=== PATIENT | female | born 1995 | race Caucasian/White ===

== ENCOUNTER 2024-05-07 08:55 | Outpatient (AMB) | payer BC, SELFPAY ==
[2024-05-07 08:59] VITALS: BP 118/70; PULSE 69; O2SAT 98; BMI 39.4
--- NOTE | 2024-05-07 08:59 | A.OFFPC_ITS ---
Vital Signs 05/07/24 08:59 Height 5 ft 3 in Weight 222 lb 4 oz BMI 39.4 BP 118/70 Blood Pressure Location Lt brachial Position Sitting Pulse 69 Pulse Source Pulse Oximeter Pulse Oximetry (%) 98 Oxygen Delivery Method Room Air Intake Visit Reasons: IRONER Intake Note: Patient is here as a new patient, would like to talk about Semigultide today. Is last menstrual period known: Yes Last menstrual period: 04/30/24 Allergies No Known Allergies Allergy (Verified 05/07/24 09:01) Tobacco use date assessed: 05/07/24 Dental Screening Dental Screen Date: 05/07/24 Did you have a dental visit in the last 12 months?: Yes Did you have a dental problem in the last 6 months where you did not have access to dental care?: No Was dental information given to patient?: Patient has dentist HPI HPI Comments History of Present Illness Details This is a 28-year-old female with no significant past medical history presenting to [facility] care. Her last practice was in [place]. She was seen there 2 years ago. She is saving for a house with her boyfriend. 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 She would like to discuss weight loss medication. She has struggled with her weight for many years. She tried hypnosis, and she currently follows a low carbohydrate, low sugar diet and goes to the gym 4 times per week. She has been actively trying to lose weight for the past year without success. She had an annual gynecologic exam within the past year at [facility]. She will schedule an eye exam. ROS: Constitutional: No unexplained weight loss, fever, chills, fatigue or night sweats. Eyes: No vision changes, blurry vision, double vision, eye pain, eye redness, eye discharge. ENT: No hearing loss, sneezing, congestion, runny nose or sore throat. Respiratory: No shortness of breath, cough or sputum production. Cardiovascular: No chest pain, chest pressure or chest discomfort. No palpitations or pedal edema. Gastrointestinal: No anorexia, nausea, vomiting or diarrhea. No abdominal pain or blood in stool. Genitourinary: No dysuria, hematuria, urinary frequency. Neurologic: No headache, dizziness, syncope, unilateral weakness, ataxia, numbness or tingling in the extremities. Musculoskeletal: No muscle pain, back pain, joint pain or swelling. Hematologic/Lymphatics: No bleeding or bruising. No painful lymph nodes. Skin: No rash or itching. Endocrine: No cold or heat intolerance. No polyuria or polydipsia. Psychiatric: No depression or anxiety. No SI/HI. Physical exam: Constitutional: Alert, in no distress. Head: Normocephalic. Eyes: Pupils are equal, round and reactive to light. Extraocular muscles intact. Ear, Nose and Throat: Canals clear. TMs normal. Normal nasal mucosa. No nasal discharge. No oral lesions. Neck: Supple, Full range of motion. No lymphadenopathy. No palpable thyroid masses. Respiratory: Clear to auscultation. Cardiovascular: S1 S2 regular. No murmurs. Gastrointestinal: Abdomen soft, non-tender, non-distended. Normal bowel sounds. No palpable masses. Neurologic: No focal neurological deficits. Symmetric patellar reflexes. Moves all extremities spontaneously. Sensation intact bilaterally. Skin: No rashes. Musculoskeletal: No gross deformities. Normal range of motion. Extremities: Warm and well perfused. No clubbing, cyanosis or edema. 3+ peripheral pulses bilaterally. Psychiatric: Normal mood and affect [facility] Medical History (Updated 05/07/24 @ 09:51 by NICK Mccain) Obesity, Class II, BMI 35-39.9, isolated (see actual BMI) Surgical History (Updated 05/07/24 @ 09:47 by NICK Mccain) History of wisdom tooth extraction Family History (Updated 05/07/24 @ 09:35 by NICK Mccain) Father Diabetes Mother Mental health disorder Sister Mental health disorder Maternal Grandmother Breast cancer Paternal Grandfather Prostate cancer Social History (Updated 05/07/24 @ 09:10 by Candace Hernandez [facility]) Household Members: Family Both parents involved: Yes Caregiver staying overnight: No Housing: Condominium Are you a primary manager managed care to a significant other at home: No Do you presently have visiting nurse or other home services: No 75 years or older and lives alone: No Alcohol intake: current Alcohol intake frequency: holidays/special occasions only Alcohol type: wine, hard liquor and other Patient Tobacco Use Status: Never used Tobacco e-Cigarette/Vaping Use: Never Used Agree to transfusion: Yes service: No Current occupational status: employed 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 Cognitive needs: No Hearing needs: No Vision needs: Yes (Patient wears glasses) Female Reproductive History Menstrual Date of last menstrual period: 04/30/24 Questionnaire PHQ-9 Over the last 2 weeks, how often have you been bothered by any of the following problems? 1. Little interest or pleasure in doing things: not at all 2. Feeling down, depressed, or hopeless: not at all 3. Trouble falling or staying asleep, or sleeping too much: not at all 4. Feeling tired or having little energy: not at all 5. Poor appetite or overeating: not at all 6. Feeling bad about yourself - or that you are a failure or have let yourself or your family down: not at all 7. Trouble concentrating on things, such as reading the newspaper or watching television: not at all 8. Moving or speaking so slowly that other people could have noticed. Or the opposite - being so fidgety or restless that you have been moving around a lot more than usual: not at all 9. Thoughts that you would be better off or of hurting yourself in some way: not at all Total score: 0 Depression Screening Interpretation: Negative Depression Screening Done: Yes Source: Developed by Drs. Miguel Dolan, Evangelina Olmos, Dionte Morgan and colleagues, with an educational malathi from [employer]. Thrive Questionnaire Date Thrive assessed: 05/07/24 I am a: Patient What is your living situation today?: I have a steady place to live Within the past 12 months, did the food you bought not last and you didn't have the money to get more?: Never true Within the past 12 months, did you worry whether your food would run out before you got money to buy more?: Never true Do you have trouble paying for medicines?: No Do you have trouble getting transportation to medical appointments?: No Do you have trouble paying your heating and electricity bill?: No Do you have trouble taking care of your child, family member or friend?: No Do you have trouble with day-to-day activities such as bathing, preparing meals, shopping, managing finances, etc.?: No Are you currently unemployed and looking for a job?: No Are you interested in more education?: No THRIVE Score: 0 AUDIT C Alcohol Use Questionnaire (AUDIT-C) 1. How often do you have a drink containing alcohol?: 2-4 times a month 2. How many drinks containing alcohol do you have on a typical day when you are drinking?: 5 or 6 3. How often do you have six or more drinks on one occasion?: Less than monthly Total Score: 5 Score Reviewed/Action Taken: Yes CÉSAR-7 AMB Questionnaire CÉSAR-7 Date CÉSAR - 7 assessed: 05/07/24 Feeling nervous, anxious, or on edge: 0 = Not at all Not being able to stop or control worryin = Not at all Worrying too much about different things: 0 = Not at all Trouble relaxin = More than half the days Being so restless that it is hard to sit still: 0 = Not at all Becoming easily annoyed or irritable: 0 = Not at all Feeling afraid as if something awful might happen: 0 = Not at all Total CÉSAR-7 score (0-4 normal; 5-9 mild; 10-14 moderate; 15-21 severe): 2 Source: Developed by Drs. Miguel Dolan, Evangelina Olmos, Dionte Morgan and colleagues, with an educational malathi from [employer]. Physical exam (Primary Care) Vital Signs: Last Vital Signs Pulse 69 05/07/24 08:59 BP 118/70 05/07/24 08:59 Pulse Ox 98 05/07/24 08:59 Oxygen Delivery Method Room Air 05/07/24 08:59 BMI result Body Mass Index 39.4 Tobacco/Smoking Status: Tobacco use Status Tobacco use date assessed 05/07/24 05/07/24 09:10 Patient Tobacco Use Status Never used Tobacco 05/07/24 09:10 e-Cigarette/Vaping Use Never Used 05/07/24 09:10 PHQ-9: PHQ-9 Score PHQ-9: Total score 0 05/07/24 09:16 Depression Screening Interpretation: Negative Thrive Assessment: Date of Thrive Assessment Date Thrive assessed 05/07/24 05/07/24 09:16 Assessment and Plan Assessment & Plan (1) Routine physical examination: Code(s): Z00.00 - Encounter for general adult medical examination without abnormal findings Plan: Patient is seen today for a routine physical. As part of this visit we reviewed the following issues, which are considered and essential part of preventative health in this age group: - Breast Cancer screening - Annual Policy Intern exam - Blood pressure screening annually - Cholesterol screening - Osteoporosis prevention including calcium/vitamin D intake, weight bearing exercise & smoking cessation - Nutritional and exercise counseling - Counseling of injury prevention including fire prevention, smoke alarms and seat belt usage - Screening for depression - Prevention of and/or testing for infectious diseases - done at [facility] per pt - Education about skin cancer - Recommendations about immunizations -she will sign release for transfer records - Recommendation of an eye exam - Screening for substance abuse (2) Obesity, Class II, BMI 35-39.9, isolated (see actual BMI): Code(s): E66.9 - Obesity, unspecified Plan: Check screening labs. Prescribed Zepbound. The patient denies contraindications to GLP-1 receptor agonist. We reviewed the FDA preliminary evaluation that has not found evidence that these medications cause suicidal thoughts or actions, but the investigation is ongoing. If the patient develops these symptoms they will stop taking the medication immediately and contact the office. We reviewed more common side effects such as bloating, constipation, nausea and vomiting. We reviewed the administration and dosing schedule. The patient is instructed to continue lifestyle modifications and efforts at weight loss. We discussed how weight loss can cause physiologic changes in the body and that some patients may experience hair thinning/hair loss. We also discussed that the medications are frequently backordered which may result in a delayed start or disruption when taking the medication. The patient understands it is their responsibility to contact alternative pharmacies if the medication is not available at their usual pharmacy. The patient is also made aware that insurance may deny coverage for the medication despite prior authorization. Plan Follow up 3 weeks after starting Zepbound for med check. Telehealth okay. Orders: Orders Complete Blood Count no Diff Today E66.9 - Obesity, unspecified, Z13.6 - Encounter for screening for cardiovascular disorders Comprehensive Met. Panel Today E66.9 - Obesity, unspecified, Z13.6 - Encounter for screening for cardiovascular disorders Lipid Panel Today E66.9 - Obesity, unspecified, Z13.6 - Encounter for screening for cardiovascular disorders TSH reflex Free T4 Today E66.9 - Obesity, unspecified, Z13.6 - Encounter for screening for cardiovascular disorders Medications: New tirzepatide (weight loss) (Zepbound) 2.5 mg (0.5 mL) subcut QWEEK 4 weeks 2 mL 0RF Coding Level of Care Code New Pt Prev Care 18-39yr(65074 Diagnoses Routine physical examination Z00.00 Obesity, Class II, BMI 35-39.9, isolated (see actual BMI) E66.9
== END 2024-05-07 09:48 | disposition home or self-care (01) ==
PROVIDERS: PCP Physician Assistant Medical; Visit Provider Physician Assistant Medical
DX: Z00.00 Encounter for general adult medical examination without abnormal findings (principal); E66.9 Obesity, unspecified; Z68.39 Body mass index [BMI] 39.0-39.9, adult
CPT/HCPCS: 99385

== ENCOUNTER 2024-06-06 08:28 | Outpatient (REF) | payer BC, SELFPAY ==
[2024-06-06 09:09] LABS: Hematocrit 39.6 % (37.0-47.0); Hemoglobin 12.9 g/dl (12.0-16.0); Mean Corpuscular HGB Conc 32.6 g/dl (31.0-35.0); Mean Corpuscular Hemoglobin 29.3 pg (27.0-33.0); Mean Platelet Volume 9.6 fL (9.4-12.3); Platelet Count 404 X10*3/uL (160-400); Red Cell Distribution Width 12.6 % (11.0-16.0)
[2024-06-06 09:38] LABS: Alanine Aminotransferase 19 U/L (0-31); Albumin Level 4.4 g/dL (3.5-5.0); Alkaline Phosphatase 81 U/L (39-117); Anion Gap 12 (12-20); Aspartate Amino Transferase 15 U/L (5-31); Bilirubin Total 0.3 mg/dL (0.0-1.0); Blood Urea Nitrogen 16 mg/dL (9-16); Calcium 9.2 mg/dL (8.4-10.2); Carbon Dioxide 24 mmol/L (22-29); Chloride 108 mmol/L (96-108); Cholesterol 197 mg/dL (<200); Estimated Glomerular Filt Rate > 60; Glucose Random 99 mg/dL (60-115); HDL Cholesterol 59 mg/dL (>40); LDL Cholesterol Calculated 122 mg/dL (<100); Sodium 140 mmol/L (135-145); Total Protein 7.6 g/dL (6.5-8.0); Triglycerides 82 mg/dL (<150)
[2024-06-06 09:55] LABS: TSH reflex Free T4 1.82 uIU/mL (0.32-4.0)
== END 2024-06-06 08:29 | disposition home or self-care (01) ==
LOC: HO.LAB 08:28
PROVIDERS: PCP Physician Assistant Medical; Visit Provider Physician Assistant Medical
DX: E66.9 Obesity, unspecified (principal); Z13.6 Encounter for screening for cardiovascular disorders
CPT/HCPCS: 36415; 80053; 80061; 84443; 85027

== ENCOUNTER 2024-06-08 09:55 | Outpatient (AMB) | payer BC, SELFPAY ==
--- NOTE | 2024-06-08 09:52 | MHC.PC.OV ---
Intake Visit Reasons: phone visit med check zepbound Intake Note: Follow up medication Allergies No Known Allergies Allergy (Verified 06/08/24 09:53) Tobacco use date assessed: 05/07/24 Dental Screening Dental Screen Date: 05/07/24 HPI HPI Comments History of Present Illness Details This is a 29-year-old female with a past medical history of obesity presenting for a med check and to review labs. We reviewed her labs that were completed including a normal TSH level. LDL cholesterol 122 with an acceptable goal of less than 130 in this patient. Her platelet count was mildly elevated at 404,000 but not at a level for clinical concern. Patient never got a notification from her pharmacy that they received the prescription for Zepbound. She still wants to try this medicine. As you recall she struggled with weight loss for many years. She tried hypnosis, and she currently follows a low carbohydrate, low sugar diet and goes to the gym 4 times per week. She has been actively trying to lose weight for the past year without success. [facility] Medical History (Updated 05/07/24 @ 09:51 by NICK Mccain) Obesity, Class II, BMI 35-39.9, isolated (see actual BMI) Surgical History (Updated 05/07/24 @ 09:47 by NICK Mccain) History of wisdom tooth extraction Family History (Updated 05/07/24 @ 09:35 by NICK Mccain) Father Diabetes Mother Mental health disorder Sister Mental health disorder Maternal Grandmother Breast cancer Paternal Grandfather Prostate cancer Social History (Updated 05/07/24 @ 09:10 by Candace Hernandez CMA) Household Members: Family Both parents involved: Yes Caregiver staying overnight: No Housing: Condominium Are you a primary animal care technician to a significant other at home: No Do you presently have visiting nurse or other home services: No 75 years or older and lives alone: No Alcohol intake: current Alcohol intake frequency: holidays/special occasions only Alcohol type: wine, hard liquor and other Patient Tobacco Use Status: Never used Tobacco e-Cigarette/Vaping Use: Never Used Agree to transfusion: Yes service: No Current occupational status: employed 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 Cognitive needs: No Hearing needs: No Vision needs: Yes (Patient wears glasses) Questionnaire Thrive Questionnaire Date Thrive assessed: 05/07/24 CÉSAR-7 AMB Questionnaire CÉSAR-7 Date CÉSAR - 7 assessed: 05/07/24 Source: Developed by Drs. Miguel Dolan, Evangelina Olmos, Dionte Morgan and colleagues, with an educational malathi from [employer]. Physical exam (Primary Care) Tobacco/Smoking Status: Tobacco use Status Tobacco use date assessed 05/07/24 06/08/24 09:53 Patient Tobacco Use Status Never used Tobacco 06/08/24 09:53 e-Cigarette/Vaping Use Never Used 06/08/24 09:53 Thrive Assessment: Date of Thrive Assessment Date Thrive assessed 05/07/24 06/08/24 09:53 Telehealth Telehealth Telehealth Platform: Telephone Location of provider rendering services: practice address Location of patient: address on file Patient Identification confirmed using: Name, : Yes Telehealth method: voice only Patient verbally consented to treatment: Yes Patient verbally consented to billing insurance company: Yes Patient informed of any privacy concerns related to visit: Yes Minutes spent on Phone/Video with Pt.: 9 Assessment and Plan Assessment & Plan (1) Obesity, Class II, BMI 35-39.9, isolated (see actual BMI): Code(s): E66.9 - Obesity, unspecified Plan: Resubmitted prescription to the pharmacy. She should be re-evaluated about a month after she starts the medicine. Side effects and warnings about this medication reviewed. Message sent to clinical staff that prior authorization will be required. Medications: Refilled tirzepatide (weight loss) (Zepbound) 2.5 mg (0.5 mL) subcut QWEEK 4 weeks 2 mL 0RF tirzepatide (weight loss) (Zepbound) 2.5 mg (0.5 mL) subcut QWEEK 4 weeks 2 mL 0RF Discontinued lorazepam Take 30-60 minutes prior to procedure Discontinued Reason: Doctor's Order 0.5 mg PO ONCE PRN 1 tab 0RF anxiety Coding Level of Care Code Tele Est Pt Level 3 (03694) Complex EM visit Add On G2211 Diagnoses Obesity, Class II, BMI 35-39.9, isolated (see actual BMI) E66.9 Time Spent (min) 14
== END 2024-06-08 14:04 | disposition home or self-care (01) ==
LOC: HO.HMGFM 09:55
PROVIDERS: PCP Physician Assistant Medical; Visit Provider Physician Assistant Medical
DX: E66.9 Obesity, unspecified (principal)
CPT/HCPCS: 99441

== ENCOUNTER 2024-09-03 08:52 | Outpatient (AMB) | payer BC, SELFPAY ==
--- NOTE | 2024-09-03 08:55 | MHC.PC.OV ---
Vital Signs 09/03/24 08:58 Height 5 ft 3 in Weight 211 lb BMI 37.4 BP 113/66 Blood Pressure Location Lt brachial Position Sitting Respiration 13 Pulse 76 Pulse Source Pulse Oximeter Temp 97.8 F Temp Source Skin Pulse Oximetry (%) 97 Oxygen Delivery Method Room Air Intake Visit Reasons: Follow up for Zepbound Intake Note: follow up Public Speaker Required: No Allergies No Known Allergies Allergy (Verified 09/03/24 08:58) Tobacco use date assessed: 05/07/24 Dental Screening Dental Screen Date: 05/07/24 HPI HPI Comments History of Present Illness Details This is a 29-year-old female with a past medical history of obesity presenting for a medication review. Patient is taking Zepbound 7.5 mg. She is experiencing some fatigue, nausea and constipation. She uses ondansetron as needed which is effective. She has tried MiraLax for constipation, and she started a fiber supplement. She wants to continue the medication because she has lost 16 lb since she started it. No vomiting, fevers or chills. She is going to the gym, and she is trying to follow a healthy diet. We discussed her diet at length today, and she is agreeable to seeing a dietitian for further assistance. ROS: Constitutional: No unexplained weight loss, fever, chills or night sweats. Gastrointestinal: see HPI Psychiatric: No depression or anxiety. Physical exam: Constitutional: Alert, in no distress. Neck: Supple, Full range of motion. No lymphadenopathy. No palpable thyroid masses. Respiratory: Clear to auscultation. Cardiovascular: S1 S2 regular. No murmurs. Gastrointestinal: Abdomen soft, non-tender, non-distended. Normal bowel sounds. No palpable masses. Psychiatric: Normal mood and affect [facility] Medical History (Updated 05/07/24 @ 09:51 by NICK Mccain) Obesity, Class II, BMI 35-39.9, isolated (see actual BMI) Surgical History (Updated 05/07/24 @ 09:47 by NICK Mccain) History of wisdom tooth extraction Family History (Updated 05/07/24 @ 09:35 by NICK Mccain) Father Diabetes Mother Mental health disorder Sister Mental health disorder Maternal Grandmother Breast cancer Paternal Grandfather Prostate cancer Social History (Updated 05/07/24 @ 09:10 by Candace Hernandez CMA) Household Members: Family Both parents involved: Yes Caregiver staying overnight: No Housing: Condominium Are you a primary director of medicare to a significant other at home: No Do you presently have visiting nurse or other home services: No 75 years or older and lives alone: No Alcohol intake: current Alcohol intake frequency: holidays/special occasions only Alcohol type: wine, hard liquor and other Patient Tobacco Use Status: Never used Tobacco e-Cigarette/Vaping Use: Never Used Agree to transfusion: Yes service: No Current occupational status: employed 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 Cognitive needs: No Hearing needs: No Vision needs: Yes (Patient wears glasses) Questionnaire PHQ-9 Over the last 2 weeks, how often have you been bothered by any of the following problems? 1. Little interest or pleasure in doing things: not at all 3. Trouble falling or staying asleep, or sleeping too much: not at all 4. Feeling tired or having little energy: several days 5. Poor appetite or overeating: not at all 6. Feeling bad about yourself - or that you are a failure or have let yourself or your family down: not at all 7. Trouble concentrating on things, such as reading the newspaper or watching television: not at all 8. Moving or speaking so slowly that other people could have noticed. Or the opposite - being so fidgety or restless that you have been moving around a lot more than usual: not at all 9. Thoughts that you would be better off or of hurting yourself in some way: not at all 10342 - PHQ-9 Billing: Yes Source: Developed by Drs. Miguel Dolan, Evangelina Olmos, Dionte Morgan and colleagues, with an educational malathi from [employer]. Thrive Questionnaire Date Thrive assessed: 09/03/24 I am a: Patient What is your living situation today?: I have a steady place to live Within the past 12 months, did the food you bought not last and you didn't have the money to get more?: Never true Within the past 12 months, did you worry whether your food would run out before you got money to buy more?: Never true Do you have trouble paying for medicines?: No Do you have trouble getting transportation to medical appointments?: No Do you have trouble paying your heating and electricity bill?: No Do you have trouble taking care of your child, family member or friend?: No Do you have trouble with day-to-day activities such as bathing, preparing meals, shopping, managing finances, etc.?: No Are you currently unemployed and looking for a job?: No Are you interested in more education?: No Please select the resources that you would like help with: None Currently or been in a relationship where the following occur: No concerns reported THRIVE Score: 0 AUDIT C Alcohol Use Questionnaire (AUDIT-C) 1. How often do you have a drink containing alcohol?: 2-4 times a month 2. How many drinks containing alcohol do you have on a typical day when you are drinking?: 3 or 4 3. How often do you have six or more drinks on one occasion?: Monthly Total Score: 5 CÉSAR-7 AMB Questionnaire CÉSAR-7 Date CÉSAR - 7 assessed: 09/03/24 Feeling nervous, anxious, or on edge: 0 = Not at all Not being able to stop or control worryin = Not at all Worrying too much about different things: 0 = Not at all Trouble relaxin = Not at all Being so restless that it is hard to sit still: 0 = Not at all Becoming easily annoyed or irritable: 0 = Not at all Feeling afraid as if something awful might happen: 0 = Not at all Total CÉSAR-7 score (0-4 normal; 5-9 mild; 10-14 moderate; 15-21 severe): 0 Source: Developed by Drs. Miguel Dolan, Evangelina Olmos, Dionte Morgan and colleagues, with an educational malathi from [employer]. CÉSAR-7 Assessment Billing CÉSAR-7 Assessment Tool: CÉSAR-7 Assessment 87209 Physical exam (Primary Care) Vital Signs: Last Vital Signs Temp 97.8 F 09/03/24 08:58 Pulse 76 09/03/24 08:58 Resp 13 09/03/24 08:58 BP 113/66 09/03/24 08:58 Pulse Ox 97 09/03/24 08:58 Oxygen Delivery Method Room Air 09/03/24 08:58 BMI result Body Mass Index 37.4 Tobacco/Smoking Status: Tobacco use Status Tobacco use date assessed 05/07/24 09/03/24 08:58 Patient Tobacco Use Status Never used Tobacco 09/03/24 08:58 e-Cigarette/Vaping Use Never Used 09/03/24 08:58 Thrive Assessment: Date of Thrive Assessment Date Thrive assessed 09/03/24 09/03/24 08:58 Currently or been in a relationship where the following occur: No concerns reported Coding Level of Care Code Est Pt Level 3 (95367) Complex EM visit Add On G2211 Diagnoses Obesity, Class II, BMI 35-39.9, isolated (see actual BMI) E66.9 Additional Codes CÉSAR-7 Assessment Billing - CÉSAR-7 Assessment Tool: CÉSAR-7 Assessment 37820 ([id number]) PHQ-9 - 83594 - PHQ-9 Billing: Yes ([id number]) Assessment & Plan Assessment & Plan (1) Obesity, Class II, BMI 35-39.9, isolated (see actual BMI): Code(s): E66.9 - Obesity, unspecified Category: Medical Plan: In summary this is a 29-year-old female being treated for obesity class 2 with Zepbound. She has tolerable side effects. She will try prune juice in addition to the fiber supplement for constipation and make sure she is drinking a lot of water and exercising. I encouraged her to start a multivitamin. She will continue a low-carbohydrate diet and avoid sugars and alcohol. She is referred to the dietitian for further assistance. I refilled the medication, and she will continue to update me via the patient portal and follow up in person in 3 months. Orders: Orders Influenza [id number] Immunization Today Z23 - Encounter for immunization Referrals Egg Worker Nutrition Referral E66.9 - Obesity, unspecified Medications: New Fluarix Triv [id number] (PF) (flu vacc [id number] 6mos up(PF)) 0.5 mL IM ONCE 0.5 mL 0RF NS Z23 - Encounter for immunization Refilled tirzepatide (weight loss) (Zepbound) 7.5 mg (0.5 mL) subcut QWEEK 2 mL 0RF
[2024-09-03 08:58] VITALS: BP 113/66; PULSE 76; RESP 13; TEMP 36.6; O2SAT 97; BMI 37.4
== END 2024-09-03 09:27 | disposition home or self-care (01) ==
LOC: HO.HMCFM 08:53
PROVIDERS: PCP Physician Assistant Medical; Visit Provider Physician Assistant Medical
DX: E66.9 Obesity, unspecified (principal); Z68.37 Body mass index [BMI] 37.0-37.9, adult

== ENCOUNTER → 2024-09-03 08:52 | Outpatient (BNVA) | payer BC, SELFPAY | PROVIDERS: PCP Physician Assistant Medical; Visit Provider Physician Assistant Medical | DX: E66.9 Obesity, unspecified (principal); Z68.37 Body mass index [BMI] 37.0-37.9, adult; Z23 Encounter for immunization | CPT/HCPCS: 90471; 90656; 96127 ==

== ENCOUNTER 2025-01-07 08:52 | Outpatient (AMB) | payer BC, SELFPAY ==
--- NOTE | 2025-01-07 08:58 | MHC.PC.OV ---
Vital Signs 01/07/25 08:59 Height 5 ft 3 in Weight 192 lb 2 oz BMI 34.0 BP 98/66 Blood Pressure Location Lt brachial Position Sitting Respiration 12 Pulse 67 Pulse Source Pulse Oximeter Pulse Oximetry (%) 99 Oxygen Delivery Method Room Air Intake Visit Reasons: med check Intake Note: Medication follow up Broom Builder Required: No Allergies No Known Allergies Allergy (Verified 01/07/25 08:58) Tobacco use date assessed: 01/07/25 Dental Screening Dental Screen Date: 05/07/24 HPI HPI Comments History of Present Illness Details This is a 29-year-old female with a past medical history of obesity presenting for a medication review. Patient is taking Zepbound 7.5 mg. She did not tolerate 10 mg which resulted in adverse GI side effects. She is still losing weight on the 7 mg dosage. She denies side effects. Previously experience some fatigue, nausea and constipation, but this resolved. Her BMI today is 34 down from 37.4 on 09/03/2024. Her weight is also down to 192 lb and 2 oz from 211 lb 09/03/2024. She is very happy with her progress. She is doing spin class 3 times per week and goes to the gym the other days. She decreased alcohol consumption to 2 drinks per month. She is following a high protein/low carb diet and exercises portion control. ROS: Constitutional: No unexplained weight loss, fever, chills or night sweats. Gastrointestinal: Denies abdominal pain, nausea, vomiting, diarrhea and constipation. Psychiatric: No depression or anxiety. Physical exam: Constitutional: Alert, in no distress. Neck: Supple, Full range of motion. No lymphadenopathy. No palpable thyroid masses. Respiratory: Clear to auscultation. Cardiovascular: S1 S2 regular. No murmurs. Psychiatric: Normal mood and affect [facility] Medical History (Updated 01/07/25 @ 09:21 by NICK Mccain) Class 1 obesity Easy bruisability Obesity, Class II, BMI 35-39.9, isolated (see actual BMI) Surgical History History of wisdom tooth extraction Family History Father Diabetes Mother Mental health disorder Sister Mental health disorder Maternal Grandmother Breast cancer Paternal Grandfather Prostate cancer Social History (Updated 01/07/25 @ 09:02 by Cheryl Duke CMA) Household Members: Family Both parents involved: Yes Caregiver staying overnight: No Housing: Condominium Are you a primary direct care counselor to a significant other at home: No Do you presently have visiting nurse or other home services: No 75 years or older and lives alone: No Alcohol intake: current Alcohol intake frequency: holidays/special occasions only Alcohol type: wine, hard liquor and other Patient Tobacco Use Status: Never used Tobacco e-Cigarette/Vaping Use: Never Used Second Hand Smoke Exposure: No Agree to transfusion: Yes service: No Current occupational status: employed 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 Current occupational exposures/hazards: No Cognitive needs: No Hearing needs: No Vision needs: Yes (Patient wears glasses) Questionnaire PHQ-9 Over the last 2 weeks, how often have you been bothered by any of the following problems? 1. Little interest or pleasure in doing things: not at all 2. Feeling down, depressed, or hopeless: not at all 3. Trouble falling or staying asleep, or sleeping too much: not at all 4. Feeling tired or having little energy: not at all 5. Poor appetite or overeating: not at all 6. Feeling bad about yourself - or that you are a failure or have let yourself or your family down: not at all 7. Trouble concentrating on things, such as reading the newspaper or watching television: not at all 8. Moving or speaking so slowly that other people could have noticed. Or the opposite - being so fidgety or restless that you have been moving around a lot more than usual: not at all 9. Thoughts that you would be better off or of hurting yourself in some way: not at all Total score: 0 Depression Screening Interpretation: Negative Depression Screening Done: Yes 18614 - PHQ-9 Billing: Yes Source: Developed by Drs. Miguel Dolan, Evangelina Olmos, Dionte Morgan and colleagues, with an educational malathi from [employer]. Thrive Questionnaire Date Thrive assessed: 12/31/24 I am a: Patient What is your living situation today?: I have a steady place to live Within the past 12 months, did the food you bought not last and you didn't have the money to get more?: Never true Within the past 12 months, did you worry whether your food would run out before you got money to buy more?: Never true Do you have trouble paying for medicines?: No Do you have trouble getting transportation to medical appointments?: No Do you have trouble paying your heating and electricity bill?: No Do you have trouble taking care of your child, family member or friend?: No Do you have trouble with day-to-day activities such as bathing, preparing meals, shopping, managing finances, etc.?: No Are you currently unemployed and looking for a job?: No Are you interested in more education?: No Please select the resources that you would like help with: None Currently or been in a relationship where the following occur: No concerns reported THRIVE Score: 0 AUDIT C Alcohol Use Questionnaire (AUDIT-C) 1. How often do you have a drink containing alcohol?: 2-4 times a month 2. How many drinks containing alcohol do you have on a typical day when you are drinking?: 3 or 4 3. How often do you have six or more drinks on one occasion?: Less than monthly Total Score: 4 CÉSAR-7 AMB Questionnaire CÉSAR-7 Date CÉSAR - 7 assessed: 01/07/25 Feeling nervous, anxious, or on edge: 0 = Not at all Not being able to stop or control worryin = Not at all Worrying too much about different things: 0 = Not at all Trouble relaxin = Not at all Being so restless that it is hard to sit still: 0 = Not at all Becoming easily annoyed or irritable: 1 = Several days Feeling afraid as if something awful might happen: 0 = Not at all Total CÉSAR-7 score (0-4 normal; 5-9 mild; 10-14 moderate; 15-21 severe): 1 Source: Developed by Drs. Miguel Dolan, Evangelina Olmos, Dionte Morgan and colleagues, with an educational malathi from [employer]. CÉSAR-7 Assessment Billing CÉSAR-7 Assessment Tool: CÉSAR-7 Assessment 35152 Physical exam (Primary Care) Vital Signs: Last Vital Signs Pulse 67 01/07/25 08:59 Resp 12 01/07/25 08:59 BP 98/66 01/07/25 08:59 Pulse Ox 99 01/07/25 08:59 Oxygen Delivery Method Room Air 01/07/25 08:59 BMI result Body Mass Index 34.0 Tobacco/Smoking Status: Tobacco use Status Tobacco use date assessed 01/07/25 01/07/25 09:03 Patient Tobacco Use Status Never used Tobacco 01/07/25 09:03 e-Cigarette/Vaping Use Never Used 01/07/25 09:03 PHQ-9: PHQ-9 Score PHQ-9: Total score 0 01/07/25 09:03 Depression Screening Interpretation: Negative Thrive Assessment: Date of Thrive Assessment Date Thrive assessed 12/31/24 01/07/25 09:03 Currently or been in a relationship where the following occur: No concerns reported Coding Level of Care Code Est Pt Level 3 (21063) Complex EM visit Add On G2211 Diagnoses Class 1 obesity E66.811 Additional Codes CÉSAR-7 Assessment Billing - CÉSAR-7 Assessment Tool: CÉSAR-7 Assessment 31170 ([id number]) PHQ-9 - 95082 - PHQ-9 Billing: Yes ([id number]) Assessment & Plan Assessment & Plan (1) Class 1 obesity: Code(s): E66.811 - Obesity, class 1 Category: Medical Plan In summary this is a 29-year-old female being treated for obesity, class 1 now, with Zepbound. She denies side effects. She continues to lose weight on the current dose. She is following a low carb high-protein diet, exercising portion control and only drinking alcohol twice per month. She exercises daily. PA will be processed. Follow up in May for a med check/physical exam.
[2025-01-07 08:59] VITALS: BP 98/66; PULSE 67; RESP 12; O2SAT 99; BMI 34.0
--- OUTSIDE RECORDS SUMMARY | 2025-01-07 09:49 | XMS_ITS ---
Author Organization [facility] [employer] [facility] Address [address] [facility] [address] [place] [address] Care Team Providers Care All Around Presser Name Role Phone CHARLES ECKERT Unavailable [phone] REASON FOR VISIT BC OPTIONS Encounters Encounter Location Date Provider Diagnosis [facility] [address] [place] [address] 09/18/2024 CHARLES ECKERT Encounter for other general counseling and advice on contraception Z30.09 Assessments Encounter Date Diagnosis (ICD Code) Assessment Notes Treatment Notes Treatment Clinical Notes Section Notes 09/18/2024 Encounter for other general counseling and advice on contraception (ICD-10 - Z30.09) Plan Of Treatment Next Appt Details Provider Name:CHARLES Lindsey, 03/08/2025 09:20:00 AM, [address] [place] [address], [address], [place], [address], Progress Notes * MIKEY REEDTIARAB:1995 (29 yo F)Acc No.[id number]:09/18/2024 PROGRESS NOTES Patient:?DEANNA REED Provider:?CHARLES ECKERT MD :1995???Age:29 Y???Sex:Female D ate:09/18/2024 Address:[address] [place], [place] [address] Subjective: * Chief Complaints: * ???1. BC OPTIONS. * HPI: ???Constitutional:? Deanna is a 29 yo G0 with LMP who presents today for contraceptive options. Current contraception methodOCPs/condoms. She is not happy with her current method and would like to discuss the IUD in particular.? She was started on the weight loss [...] areas of concern were addressed: Options discussed include? IUDs as well as barrier options (male [...] partner during intercourse from strings, heavier or ticket clerk menses, expulsion of IUD, uterine perforation with loss of IUD and potential for surgical removal, ectopic or tubal , infection with potential loss of future fertility. All questions answered to the patient's satisfaction. After careful consideration, she has chosen as her method of contraception. * Medical History:? Objective: * Vitals:? Assessment: * Assessment: 1.?Encounter for other gener al counseling and advice on contraception - Z30.09 (Primary)??? Plan: * Treatment: * Images: Billing Information: * Visit Code:? * Procedure Codes:? * Electronic signature of CHARLES ECKERT MD on 01/07/2025 at 09:48 AM EDT Sign off status: Pending * Provider:?CHARLES ECKERT MD Date:?2023 Generated for Justine vásquez/Betsy/eTjimmieitting on:?01/07/2025 09:48 AM EDT History and Physical Notes * [...] partner during intercourse from strings, heavier or ticket clerk menses, expulsion of IUD, uterine perforation with loss of IUD and potential for surgical removal, ectopic or tubal , infection with potential loss of future fertility. All questions answered to the patient's satisfaction. After careful consideration, she has chosen as her method of contraception.
--- OUTSIDE RECORDS SUMMARY | 2025-01-07 09:49 | XMS_ITS | Clinical Summary ---
Author Organization [facility] Address [address] [place] [phone] Phone Care Team Providers Care Financial Analyst Accountant Name Role Phone Unavailable Primary Care Provider Unavailabl e Allergies No known active allergies Medications Norethindrone Acet-Ethinyl Est () 1.5-30 MG-MCG tabletIndication s:Irregular menses Take one tablet daily 28 each 11 06/11/2018 Active Active Problems Problem Noted Date Diagnosed Date Overweight 01/25/2010 Immunizations Immunization Administration Dates Next Due DTaP 5 06/23/2002, 9,1997,09/29,1997 H1N1 08/16/2009 HPV, Quadrivalent 05/13/2013,12/25/2012,10/22/20 12 Hep A, Adult 06/11/2018,05/07/2017 Hep B, ped/adol 1997,1997,1997 Hib (PRP-T) 08/23/1998, 8,1997,07/26 IPV 06/23/2002 Influenza Split 08/29/2013,10/22/2012,09/13/2010 Influenza, injectable, trivalent 08/16/2009,07/28 Influenza, intranasal, trivalent 09/24/2011 MMR 10/25/2011,06/19/2001,05/12/1998 Meningococcal Conj (Menactra) MCV4P 06/15/2015,1 OPV 1997,1997,1997 Td (adult) (MBL), 2 Lf tetan us toxoid, PF, adsorbed 09/03/2018 Tdap 08/10/2008 Varicella 06/11/2018,08/10/2008,05/27/1998 Family History Medical History Relation Name Comments Asthma Father sarah Diabetes Father sarah Obesity Father sarah Depression Mother ashley Sidhu Hyperlipidemia Mother ashley Sidhu Obesity Mother ashley Sidhu ADD / ADHD Sister cara Relation Name Status Comments Father sarah Alive Maternal Grandmother Alive Materna l grandmother: Depression Mother ashley Sidhu Alive Sister cara Alive Social History Tobacco Use Types Packs/Day Years Used Date Smoking Tobacco: Never Smokeless Tobacco: Never Comments:Never smoker Alcohol Use Standard Drinks/Week Comments No 0 (1 standard drink = 0.6 oz pur e alcohol) Comments Unknown Sex and Gender Information Value Date Recorded Sex Assigned at Not on file Legal Sex Female 4:59 PM EDT Gender Identity Not on file Sexual Orientation Not on file Last Filed Vital Signs Vital Sign Reading Time Taken Comments Blood Pressure 101/73 06/11/2018 10:21 AM EDT Pulse 91 06/11/2018 10:21 AM EDT Temperature 36.9 ??C (98.5 ??F) 07/21/2015 12:00 AM E DT Respiratory Rate - - Oxygen Saturation - - Inhaled Oxygen Concentration - - Weight 97.1 kg (214 lb) 06/11/2018 10:21 AM EDT Height 162.6 cm (5' 4 ) 06/11/2018 10:21 AM EDT Body Mass Index 36.73 06/11/2018 10:21 AM EDT Plan of Treatment Health Maintenance Due Date Last Done Comments Influenza Vaccines (#1) 2024 08/29/20 13, 10/22/2012, 09/24/2011, Additional history exists COVID-19 Vaccine ( - season) 2024 DTaP,Tdap,and Td Vaccines (8 - Td or Tdap) 09/03/2028 09/03/2018, 08/10/2008, 06/23/2002, Additional history exists Hepatitis B Vaccines Completed 1997, 1997, 1997 HIB Vaccines Completed 08/23/1998, 01/1998, 1997, Additional history exists IPV Vaccines Completed 06/23/2002, 01/1998, 1997, Additional history exists MMR Vaccines Completed 10/25/2011, 05/29, 05/12/1998 HPV Vaccines Completed 05/13/2013, 11/29, 10/22/2012 Meningococcal Vaccine Completed 06/15/2015, 008 Hepatitis A Vaccines Aged Out 06/11/2018, 05/07/20 17 No longer eligible based on patient's age to complete this topic Varicella Vaccines Completed 06/11/2018, 1 , 05/27/1998 Men B Vaccine Aged Out No longer elig ible based on patient's age to complete this topic Pneumococcal Vaccine Aged Out No long er eligible based on patient's age to complete this topic Procedures * Due to [place] [employer] law, this organization might not be sharing sensitive test results. Procedure Name Priority Date/Time Associated Diagnosis Comments CHLAMYDIA AND GONORRHEA, AMPLIFIED Routine 06/11/2018 4:54 PM EDT Well adult exam from Last 3 Months or Most Recently Relevant to Health Maintenance Results * Due to [place] [employer] law, this organization might not be sharing sensitive test results. * Chlamydia and Gonorrhea, Amplified (06/11/2018 4:54 PM EDT) Chlamydia Trachomatis, DNA Probe NEGATIVE (NEG) [facility] Comment: No Chlamydia Trachomatis RNA detected in this patient's sample ? (REFERENCE RANGE/NORMAL VALUE: NOT DETECTED) ? Note: This test uses merchant mill utility worker- mediated amplification method to detect rRNA from C. Trachomatis URINE GC AMP PROBE NEGATIVE (NEG) [facility] Comment: No Neisseria Gonorrhoeae RNA detected in this patient's sample ? (REFERENCE RANGE/NORMAL VALUE: NOT DETECTED) ? NOTE: This test uses merchant mill utility worker-mediated amplification method to detect rRNA from N.Gonorrhoeae. A negative result does not preclude infection. In the case of a negative urine result, testing of an endocervical(female) or urethral (male) specimen is recommended if there is high clinical suspicion of infection. Due to very high sensitivity of Nucleic Acid Amplification Test, false positive results may occur. Therefore, specimen handling is extremely important. In patients in whom the disease is unlikely, additional sample for testing should be considered after an initial positive result. The performance characteristics of this test have not been evaluated in children. The Aptima Combo2 assay is not intended for the evaluation of suspected sexual abuse or for other medico-legal indications. The ordering provider should assess if the patient had consensual sex without risk of sexual abuse. Consult the [facility] if needed. Contact phone number . Therapeutic failure or success cannot be determined with the Aptima Combo2 assay since nucleic acid may persist following appropriate antimicrobial therapy. The Centers for Disease Control and Prevention (CDC) recommends confirmatory retesting using culture or a different nucleic acid amplification test when positive results occur, if indicated. Testing performed or reported by [facility], a Service of [facility], [facility] [place] [address] CLIA ??[id number] Franny Foster MD, PhD, Bpo Specialist Urine 06/11/2018 4:54 PM EDT 06/11/2018 9:10 PM EDT us Erika Kinney NP LAB MICROBIOLOGY - GENERAL ORDER SHIRA Final Result [facility] from Last 3 Months or Most Recently Relevant to Health Maintenance Insurance [facility]
--- OUTSIDE RECORDS SUMMARY | 2025-01-07 09:50 | XMS_ITS | Encounter Summary ---
Author Organization [facility] Address [address] [place] [address] Phone Care Team Providers Care Stranding Machine Operator Name Role Phone Unavailable Primary Care Provider Unavailabl e Encounter Details Date Type Department Care Team (Late st Contact Info) Description 05/11/2016 Documentation EM Family Medicine formerly [facility] [place] [address] Family Medicine, Physician [address] [place] [phone] Social History Tobacco Use Types Packs/Day Years Used Date Smoking Tobacco: Never Assessed Comments Unknown Sex and Gender Information Value Date Recorded Sex Assigned at Not on file Legal Sex Female 4:59 PM EDT Gender Identity Not on file Sexual Orientation Not on file documented as of this encounter Plan of Treatment Not on file documented as of this encounter Visit Diagnoses Not on filedocumented in this encounter
--- OUTSIDE RECORDS SUMMARY | 2025-01-07 09:50 | XMS_ITS | Encounter Summary ---
Author Organization [facility] Address [address] [place] [address] Phone Care Team Providers Care Hhas Name Role Phone Unavailable Primary Care Provider Unavailabl e Encounter Details Date Type Department Care Team (Late st Contact Info) Description 06/13/2017 Conversion Encounter [facility] [place] [address] [place] [address] [place] [id number] Social History Tobacco Use Types Packs/Day Years Used Date Smoking Tobacco: Never Comments:Never smoker Comments Unknown Sex and Gender Information Value Date Recorded Sex Assigned at Not on file Legal Sex Female 4:59 PM EDT Gender Identity Not on file Sexual Orientation Not on file documented as of this encounter Plan of Treatment Not on file documented as of this encounter Visit Diagnoses Not on filedocumented in this encounter
--- OUTSIDE RECORDS SUMMARY | 2025-01-07 09:50 | XMS_ITS | Patient Health Record ---
Author Organization [employer] [facility] Address [address] [facility] [address] [place] [address] Care Team Providers Care Investment Banking Analyst Name Role Phone CHARLES ECKERT Unavailable [phone] Allergies No Known Allergies Results Component Value Reference Range Notes [id number] IGP, CtNg, Cultur e Under 30 Reviewed date:03/10/2024 03:47:09 PM Interpretation: Performing Lab:[facility], [address], [place], Phone - [phone], Director - [facility] Notes/Report: Clinical Information:[id number] LMP / Prev Treat...CLY=[id number] Dates / Results....2021 IN [place], [place]. Other..............Oral Contraceptives No. of containers..01 ThinPrep Vial DIAGNOSIS: NEGATIVE FOR IN TRAEPITHELIAL LESION OR MALIGNANCY. Specimen adequacy: Satisfactory for evaluation. Endocervical and/or squamous metaplastic cells (endocervical component) are present. Clinician provided ICD10: Z01.419 Z72.51 Performed by: Dev Nowak , Filter Worker (ASCP) Electronically signed by: Farhan Kim MD, Pathologist . . Note: The Pap smear is a screening test designed to aid in the detection of premalignant and malignant conditions of the uterine cervix. It is not a diagnostic procedure and should not be used as the sole means of detecting cervical cancer. Both false-positive and false-negative reports do occur. . Test Methodology: This liquid based ThinPrep(R) pap test was screened with the use of an image guided system. . The HPV DNA reflex criteria were not met with this specimen result therefore, no HPV testing was performed. . Chlamydia, Nuc. Acid Amp Negative Negative Gonococcus, Nuc. Acid Amp Negative Negative PDF Report Reviewed date:03/10/2024 03:23:48 PM Interpretation: Performing Lab:[facility], [address], [address], [place], Phone - [phone], Director - [facility] Notes/Report: Clinical Information:[id number] LMP / Prev Treat...MNN=[id number] Dates / Results....2021 IN [place], [place]. Other..............Oral Contraceptives No. of containers..01 ThinPrep Vial Reason For Referral No Information Medications Medication SIG (Take, Route, Frequency, Duration) Notes Start Date End Date Status Norgestimate-Eth Estradiol 0.25-35 MG-MCG 1 tablet Orally Once a day for 84 days Not-Taking Zepbound 7.5 MG/0.5ML 0.5 mL Subcutaneous Active Progesterone 200 MG 2 capsule at bedtime Orally Once a day for 12 days 09/28/2024 Active Social History AUDIT-C (Standard) Question Answer Notes Did you have a drink contain ing alcohol in the past year? Yes How often did you have six o r more drinks on one occasion in the past year? Less than monthly (1 point) How many drinks did you have on a typical day when you were drinking in the past year? 5 or 6 drinks (2 points) How often did you have a dri nk containing alcohol in the past year? 2 to 3 times a week (3 points) Points 6 Interpretation Positive Section Notes: Single student never smoked rare etoh no recreational drugs Single student never smoked rare etoh no recreational drugs Single student never smoked rare etoh no recreational drugs Single student never smoked rare etoh no recreational drugs Problems Problem Type SNOMED Code ICD Code Onset Dates Problem Status W/U Status Risk Notes Problem Obesity (803355496) Obesity, unspecified (E66.9) Active confirmed Problem Oligomenorrhea (28229160) Oligomenorrhea, unspecified (N91.5) Active confirmed Problem Abnormal uterine bleeding (27977848507047) Abnormal uterine and vaginal bleeding, unspecified (N93.9) Active confirmed Problem COVID-19 (084675009) COVID-19 (U07.1) Active confirmed Vital Signs Temperature 98.0 degrees Fahrenheit 09/28/2024 Blood pressure diastolic 78 mm Hg 09/28/2024 Height 63 in 09/28/2024 Blood pressure systolic 110 mm Hg 09/28/2024 Weight 204 lbs 09/28/2024 BMI 36.13 kg/m2 09/28/2024 Encounters Encounter Location Date Provider Diagnosis [address] [employer] [address] [address] 03/03/2024 CHARLES ECKERT Encounter for gynecological examination (general) (routine) without abnormal findings Z01.419 ; High risk heterosexual behavior Z72.51 ; Encounter for screening for infections with a predominantly sexual mode of transmission Z11.3 and Encounter for surveillance of contraceptive pills Z30.[address] [address] 09/28/2024 CHARLES ECKERT Oligomenorrhea, unspecified N91.[address] [address] 06/19/2024 CHARLES ECKERT [address] [address] 09/08/2024 CHARLES ECKERT Assessments Encounter Date Diagnosis (ICD Code) Assessment Notes Treatment Notes Treatment Clinical Notes Section Notes 03/03/2024 Encounter for gynecological examination (general) (routine) without abnormal findings (ICD-10 - Z01.419) Discussed cervical cancer screening with cytology every 3 years as per ASCCP guidelines. Advised continued annual pelvic exams. Patient encouraged to increase her level of exercise. SBE technique encouraged/taught. Safe sexual practices and STI prevention discussed. 03/03/2024 High risk heterosexual behavior (ICD-10 - Z72.51) 09/28/2024 Oligomenorrhea, unspecified (ICD-10 - N91.5) Will check Day 2/3 labs for evaluation. If no spontaneous menses by 11/28/24, then will induce a menses. If testing is all normal, then consider using Prometrium at least once every 3 months for a withdrawal bleed to prevent endometrial hyperplasia. If she'd like to discuss the IUD for better prevention, then will call to schedule a consult. 03/03/2024 Encounter for screening for infections with a predominantly sexual mode of transmission (ICD-10 - Z11.3) 03/03/2024 Encounter for surveillance of contraceptive pills (ICD-10 - Z30.41) No contraindications to combined hormonal contraception use. Symptoms of thromboembolic events weree reviewed using the ACHES acronym. Plan Of Treatment Pending Test Test Name Order Date Ultrasound : Pelvic 07/18/2015 FREE TESTOSTERONE 07/06/2015 TESTOSTERONE 07/06/2015 [id number] 09/28/2024 [id number] 03/03/2024 HBsAg Screen-[id number] 03/03/2024 HIV Ab/p24 Ag with Reflex-[id number] 024 TSH reflex to [id number] 09/28/2024 HCV Antibody-[id number] 03/03/2024 FSH+LH+E2 09/28/2024 Next Appt Details Provider Name:CHARLES Lindsey, 03/08/2025 09:20:00 AM, [address], [address], [place], [address], Insurance Providers Payer Name Payer Address Payer Phone Subscriber Number Group Number Insured Name Patient Relationship to Insured Coverage Start Date Coverage End Date [employer] [place] [address] [place] [address] [id number] ROXANNE REED Self - patient is the insured Medical (General) History Medical History History ICD Code Obesity, unspecified COVID-19 U07.1 Surgical History Surgery Date(Month/Year)
--- OUTSIDE RECORDS SUMMARY | 2025-01-07 09:50 | XMS_ITS | Encounter Summary ---
Author Organization [facility] Address [address] [place] [address] Phone Care Team Providers Care Agriscience Technology Instructor Name Role Phone Unavailable Primary Care Provider Unavailabl e Encounter Details Date Type Department Care Team (Late st Contact Info) Description 04/02/2013 Documentation EM Family [place] [address] Family Medicine, Physician [facility] [place], [place] [phone] Social History Tobacco Use Types Packs/Day Years [...]
--- OUTSIDE RECORDS SUMMARY | 2025-01-07 09:50 | XMS_ITS ---
Author Organization [employer] Address [address] [facility] [address] [place] [address] Care Team Providers Care Medical Technologist Hematology Name Role Phone CHARLES ECKERT Unavailable [phone] REASON FOR VISIT IUD Encounters Encounter Location Date Provider Diagnosis [facility] [address] [place] [address] 09/08/2024 CHARLES ECKERT Plan Of Treatment Next Appt Details Provider Name:CHARLES Lindsey, 03/08/2025 09:20:00 AM, [address] [facility], [address], [place], [address], Progress Notes * MIKEY REEDTIARAB:1995 (29 yo F)Acc No.[id number]:09/08/2024 Patient:?ROXANNE REED :1995???Age:29 Y???Sex:Female Address:[address] [place] [address], [phone] * true * Date:? Generated for Printi ng/Fanathanaelg/eTransmitting on:?01/07/2025 09:50 AM EDT
--- OUTSIDE RECORDS SUMMARY | 2025-01-07 09:50 | XMS_ITS ---
Author Organization [employer] [facility] Address [address] [place] [address] Care Team Providers Care Shipwright Helper Name Role Phone CHARLES ECKERT Unavailable [phone] Allergies No Known Allergies REASON FOR VISIT BC OPTIONS, Irregular menses/Oligomenorrhea Medications Medication SIG (Take, Route, Frequency, Duration) [...] week (3 points) Points 6 Interpretation Positive Problems Problem Type SNOMED Code ICD Code Onset Dates Problem Status W/U Status Risk Notes Problem Abnormal uterine bleeding ([id number]) Abnormal uterine and vaginal bleeding, unspecified (N93.9) Active confirmed Vital Signs Temperature 98.0 degrees Fahrenheit 09/28/20 24 Blood pressure systolic 110 mm Hg 09/28/20 24 Blood pressure diastolic 78 mm Hg 024 Height 63 in 09/28/2024 Weight 204 lbs 09/28/2024 BMI 36.13 kg/m2 09/28/2024 Encounters Encounter Location Date Provider Diagnosis [facility] [address] [place] [address] 09/28/2024 CHARLES SANDYHENS Oligomenorrhea, unspecified N91.5 Assessments Encounter Date Diagnosis (ICD Code) Assessment Notes Treatment Notes Treatment Clinical Notes Section Notes 09/28/2024 Oligomenorrhea, unspecified (ICD-10 - N91.5) Will [...] then will call to schedule a consult. Plan Of Treatment Medication Medication Name Sig Start Date Stop Date Notes Progesterone 200 MG 2 capsule at bedtime Orally Once a day for 12 days 09/28/2024 Treatment Notes Assessment Notes Oligomenorrhea, unspecified Will check Day 2/3 labs for evaluation. If no spontaneous menses by 11/28/24, then will induce a menses. If testing is all normal, then consider using Prometrium at least once every 3 months for a withdrawal bleed to prevent endometrial hyperplasia. If she'd like to discuss the IUD for better prevention, then will call to schedule a consult. Pending Test Test Name Order Date [id number] 09/28/2024 TSH reflex to [id number] 09/28/2024 FSH+LH+E2 09/28/2024 Next Appt Details Provider Name:CHARLES Lindsey, 03/08/2025 09:20:00 AM, [address], [address], [place], [address], Progress Notes * RAGHAV REEDB:1995 (29 yo F)Acc No.[id number]:09/28/2024 PROGRESS NOTES Patient:?DEANNA REED Provider:?CHARLES ECKERT MD :1995???Age:29 Y???Sex:Female D ate:09/28/2024 Address:[address] [place] [address] [address] [id number] Subjective: * Chief Complaints: * ???BC OPTIONSIrregular mense s/Oligomenorrhea * HPI: ???Constitutional:? Deanna is a 29 yo G0 with LMP 09/14/24 who presents today for contraceptive options. Current contraception method: OCPs/condoms. She is not happy with her current method and initially wanted to discuss the IUD in particular.?? She reports her periods have always been abnormal. When she was menarchal, she reports that her periods were always abnormal, only bleeding for the month of April each year. She is wondering why her periods have always been irregular. She reports she had testing for PCOS many years ago, which was negative. She reports she had stopped her pills for about 3 months and didn't get a period, until 09/14/24.? She reports that she had bad headaches on OCPs. She would like to take a break from control and is more interested in why her periods are irregular, than in what to do for prevention. She states she will continue to use condoms for now. She was started on the weight loss [...] of tirzepatide. Risk D: Consider therapy modification The period that started 09/14/24 was a spontaneous period, not a withdrawal bleed. ???RESEARCH MECHANIC (Problems):?c/o Amenorrhea:?Primary or secondary amenorrhea:?secondary ?When did periods stop:?3 months ago ?Antecedent events:?stopped control pills ?Associated symptoms:?nausea * ROS:?General/Constitutional:?Denies?Chills.?Denies?Fever.?Denies?Lightheadedness.?Denies?Weight gain.?Admits?Weight loss,?intentional 16 lb weight loss with Zepbound.?Endocrine:?Admits?Acne,?mildly increased since stopping OCPs.?Admits?Cold intolerance.?Denies?Heat intolerance.?Denies?Hot flashes.?Breast:?Denies?Breast pain.?Denies?Nipple discharge.?Gastrointestinal:?Denies?Abdominal pain.?Women Only:?Admits?Irregular menses.?Admits?Missed period(s).?Denies?Vaginal bleeding between periods.? * Medical History:? * Special Library Librarian History:?/ Para?0/0.?Sexual activity?currently sexually active, with men.?Last Pap Smear:?03/03/24 NIL, 2021.?Mammogram:?not due per age.?LMP and menses?09/14/24,.?History of STD's:?none.? Control:?oral contraceptive pill.?Menarche?17.?Gardasil:?series completed.? * OB History:?Total pregnancies?0.? * Surgical History:?Denies Pas t Surgical History * Hospitalization/Major Diagno stic Procedure:?Denies Past Hospitalization * Family History:?Mother: penelope e 63 yrs, High cholesterol.?Father: alive 63 yrs, diagnosed with Diabetes mellitus without mention of complication, type II or unspecified type, not stated as uncontrolled. Maternal Grand Mother: breast cancer > age 50.?Maternal Grand Father: alive 86 yrs, prostate cancer.?Sister Lubna: alive 39 yrs, well, shares same father.?Sister Megan: alive 29 yrs, shares both parents, well.? No family history of colon, uterine or ovarian cancer. * Social History:?Tobacco Use:?Tobacco Use/Smoking?Are you a: nonsmoker.?Sexual History:?Details of Sexual History?Are you sexually active??No ???Drugs/Alcohol:?Drugs?Have you used drugs other than those for medical reasons in the past 12 months??Yes ?Marijuana??Yes edibles ???Miscellaneous:?Children: no. ?Domestic violence: no. ?Exercise: yes, Spin Class 3-4 x per week. ?Home smoke detector use: yes, smoke detectors, carbon monoxide detector. ?Housing: living with relatives. ?Living with: Mom & Stepdad. ?Marital status: single, in relationship with male partner - Yovanny. 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 ?Pets: none. ?Sexual abuse: no. ?Sexually active: yes. ?Verbal abuse: no. ???Drug/Alcohol:?AUDIT-C (Standard)?Did you have a drink containing alcohol in the past year??Yes ?How often did you have six or more drinks on one occasion in the past year??Less than monthly (1 point) ?How many drinks did you have on a typical day when you were drinking in the past year??5 or 6 drinks (2 points) ?How often did you have a drink containing alcohol in the past year??2 to 3 times a week (3 points) ?Points?6 ?Interpretation?Positive * Medications:?TakingZepbound 7.5 MG/0.5ML Solution Auto-injector 0.5 mL Subcutaneous Taking Zepbound 7.5 MG/0.5ML Solution Auto-injector 0.5 mL Subcutaneous Fyf-OdibjgWgwhgfxqonfm-Kcl Estradiol 0.25-35 MG-MCG Tablet 1 tablet Orally Once a day Not-Taking Norgestimate-Eth Estradiol 0.25-35 MG-MCG Tablet 1 tablet Orally Once a day * Allergies:?N.K.D.A.no[Allerg ies Verified] Objective: * Vitals:?Ht: 63 in, Wt:204lbs , BMI:36.13Index, BP:110/78mm Hg, Temp:98.0F. * Examination: ???General Examination: ?GENERAL APPEARANCE:? pleasant, well nourished, in no acute distress, sales and marketing analyst present in room.?SKIN:? warm and dry.?Genitourinary - Female: ?ABDOMEN:? soft, non-tender, no mass.?EXTERNAL GENITALS:? normal.?URETHRAL MEATUS:? normal.?VAGINA:? healthy pink mucosa without any lesions or abnormal discharge, no lacerations.?ANUS/PERINEUM:? normal.?CERVIX:? downward, normal appearing, no cervical movement tenderness.?UTERUS:? normal size, mobile, non tender.?OVARIES:? no masses felt in adnexa.?Psychiatry: ?AFFECT:? appropriate.?ATTITUDE:? cooperative.?SPEECH:? clear.? Assessment: * Assessment: 1.?Oligomenorrhea, unspecifi ed - N91.5 (Primary)??? Plan: * Treatment: Notes: Will check Day 2/3 labs for evaluation. If no spontaneous menses by 11/28/24, then will inducea menses. If testing is all normal, then consider using Prometrium at least once every 3 months for a withdrawal bleed to prevent endometrial hyperplasia. If she'd like to discuss the IUD for better prevention, then will call to schedule a consult.?? * Procedure Codes:? * Preventive Medicine:?The first day of bleeding is considered Day 1 of your period. Have your bloodwork done on Day 2 or Day 3. If your period starts on a Saturday, you must have bloodwork done on Saturday, as the hospital will not do routine bloodwork on a Saturday. If your period starts on a Saturday, you must wait until Saturday to have your bloodwork done, for the same reason. * Images: Billing Information: * Visit Code:? 18725 Office Visit, Est Pt., Level 4. * Procedure Codes:? * Sign off status: Completed true * Provider:?CHARLES ECKERT MD Date:?2023 Generated for Justine vásquez/Betsy/eTransmitting on:?01/07/2025 09:49 AM EDT History and Physical Notes * HPI (History of Present Illness) Category Sub-Category Detail Notes Category Not es Constitutional Deanna is a 29 yo G0 with LMP 09/14/24 who presents today for contraceptive options. Current contraception method: OCPs/condoms. She is not happy with her current method and initially wanted to discuss the IUD in particular. She reports her periods have always been abnormal. When she was menarchal, she reports that her periods were always abnormal, only bleeding for the month of April each year. She is wondering why her periods have always been irregular. She reports she had testing for PCOS many years ago, which was negative. She reports she had stopped her pills for about 3 months and didn't get a period, until 09/14/24. She reports that she had bad headaches on OCPs. She would like to take a break from control and is more interested in why her periods are irregular, than in what to do for prevention. She states she will continue to use condoms for now. She was started on the weight loss [...] of tirzepatide. Risk D: Consider therapy modification The period that started 09/14/24 was a spontaneous period, not a withdrawal bleed. RESEARCH MECHANIC (Problems) Amenorrhea: Primary or secondary amenorrhea:: secondary ?When did periods stop:: 3 months ago ?Antecedent events:: stopped contr ol pills ?Associated symptoms:: nausea Examination Category Sub-Category Detail Notes Category Not es Genitourinary - Female ABDOMEN: soft, non-tender, no mass EXTERNAL GENITALS: normal VAGINA: healthy pink mucosa without any lesions or abnormal discharge, no lacerations CERVIX: downward, normal sulma earing, no cervical movement tenderness UTERUS: normal size, mobile, non tender OVARIES: no masses felt in ad nexa URETHRAL MEATUS: normal ANUS/PERINEUM: normal Psychiatry ATTITUDE: cooperative AFFECT: appropriate SPEECH: clear General Examination GENERAL APPEARANCE: pleasant , well nourished, in no acute distress, sales and marketing analyst present in room SKIN: warm and dry
== END 2025-01-07 09:18 | disposition home or self-care (01) ==
LOC: HO.HMCFM 08:52
PROVIDERS: PCP Physician Assistant Medical; Visit Provider Physician Assistant Medical
DX: E66.811 Obesity, class 1 (principal); Z68.34 Body mass index [BMI] 34.0-34.9, adult

== ENCOUNTER → 2025-01-07 08:52 | Outpatient (BNVA) | payer BC, SELFPAY | PROVIDERS: PCP Physician Assistant Medical; Visit Provider Physician Assistant Medical | DX: E66.811 Obesity, class 1 (principal); Z51.81 Encounter for therapeutic drug level monitoring; Z68.34 Body mass index [BMI] 34.0-34.9, adult; Z79.899 Other long term (current) drug therapy | CPT/HCPCS: 96127 ==

== ENCOUNTER 2025-06-17 08:19 | Outpatient (AMB) | payer BC, SELFPAY ==
--- OUTSIDE RECORDS SUMMARY | 2024-09-18 06:00 | XMS_ITS ---
Author Organization [facility] [employer] [facility] Address [address] [address] Care Team Providers Care Hospital Receiving Clerk Name Role Phone ECKERT, CHARLES Unavailable [phone] REASON FOR VISIT BC OPTIONS Encounters Encounter Location Date Provider Diagnosis [facility] [employer] [address] [address] 09/18/2024 CHARLES ECKERT Encounter for other general counseling and advice on contraception Z30.09 Assessments Encounter Date Diagnosis (ICD Code) Assessment Notes Treatment Notes Treatment Clinical Notes Section Notes 09/18/2024 Encounter for other general counseling and advice on contraception (ICD-10 - Z30.09) Plan Of Treatment No Information Progress Notes * RAGHAV REEDB:1995 (30 yo F)Acc No.[id number]:09/18/2024 PROGRESS NOTES Patient: DEANNA WEBB Provider: Jessica ECKERT MD :1995 A ge:29 Y S ex:Female Date:09/18/2024 Address:[address] [place], [place] [id number] Subjective: * Chief Complaints: * 1 . [...] partner during intercourse from strings, heavier or agricultural specialist menses, expulsion of IUD, uterine perforation with [...] Electronic signature of CHARLES ECKERT MD on 06/17/2025 at 09:04 AM EDT Sign off status: Pending * Provider: Jessica ECKERT MD Date: 11/18/2023 Generated for Justine vásquez/Betsy/Altaitting on: 0 06/17/2025 09:04 AM EDT History and Physical Notes * [...] partner during intercourse from strings, heavier or agricultural specialist menses, expulsion of IUD, uterine perforation with loss of IUD and potential for surgical removal, ectopic or tubal , infection with potential loss of future fertility. All questions answered to the patient's satisfaction. After careful consideration, she has chosen as her method of contraception.
--- NOTE | 2025-06-17 08:23 | MHC.PC.OV ---
Vital Signs 06/17/25 08:30 Height 5 ft 3 in Weight 168 lb BMI 29.8 BP 98/64 Blood Pressure Location Lt brachial Position Sitting Respiration 12 Pulse 90 Pulse Source Pulse Oximeter Temp 98.4 F Temp Source Temporal Artery Scan Pulse Oximetry (%) 98 Oxygen Delivery Method Room Air Intake Visit Reasons: annual physical Intake Note: Deanna presents in the office today for her annual physical. Allergies No Known Allergies Allergy (Verified 06/17/25 08:27) Tobacco use date assessed: 06/17/25 Dental Screening Dental Screen Date: 06/17/25 Did you have a dental visit in the last 12 months?: Yes Did you have a dental problem in the last 6 months where you did not have access to dental care?: No Was dental information given to patient?: Patient has dentist HPI HPI Comments History of Present Illness Details This is a 29-year-old female with a past medical history of obesity presenting for a physical exam. Patient is taking Zepbound 7.5 mg. She did not tolerate 10 mg which resulted in adverse GI side effects. She is still losing weight on the 7.5 mg dosage. She had increase side effects on 10 mg. Her initial weight was 222 lb and 4 oz, and she is 168 lb today. Had constipation and abdominal pain while on vacation recently. It is typical for her to get constipated when she travels. She had intense burning and bubbling in her stomach. She went to urgent care. She said testing for UTI was negative. She then had an episode of diarrhea. She had blood in stool her stool two times associated with constipation and diarrhea. She has been taking magnesium citrate consistently, and she is moving her bowels again. She endorses nausea and constipation and still has intermittent abdominal pain, but it does not like it was when she was on vacation. Denies family history of gastrointestinal disorders or cancer. Endorses lower back for a month. Picked up a chair a month ago. Hurts when she moves. No treatments attempted. She is stretching. Denies numbness or tingling in extremities or pain radiating down the legs. Initially 8/10. Pain is down to 4/10. She feels that constipation also contributes to lower back pain. A couple of months ago she also notices that when she stands up quickly her vision slowly fades out for a few seconds. After she is standing for a few more seconds her vision returns BP is 98/64. Does not associate this with eye pain, chest pain, shortness of breath, palpitations or lightheadedness. Denies headaches, numbness, tingling or weakness. She has an eye exam scheduled. On GLP 1 she has a protein bar or shake in the morning. She eats salads and water throughout the day. She has a low-carbohydrate dinner. She is doing spin class 3 times per week and goes to the gym the other days. She decreased alcohol consumption to 2 drinks per month. She sees a range rider at [facility]. ROS: Constitutional: No unexplained weight loss, fever, chills, fatigue or night sweats. Eyes: No double vision, eye pain, eye redness, eye discharge. see HPI ENT: No hearing loss, sneezing, congestion, runny nose or sore throat. Respiratory: No shortness of breath, cough or sputum production. Cardiovascular: No chest pain, chest pressure or chest discomfort. No palpitations or pedal edema. Gastrointestinal: see HPI Genitourinary: No dysuria, hematuria, urinary frequency. Neurologic: No headache, dizziness, syncope, unilateral weakness, ataxia, numbness or tingling in the extremities. Denies seizures and tremors. Musculoskeletal: See HPI. No joint pain or joint swelling.. Hematologic/Lymphatics: No bleeding or bruising. No painful lymph nodes. Skin: No rash or itching. Endocrine: No cold or heat intolerance. No polyuria or polydipsia. Psychiatric: No depression or anxiety. No SI/HI. Physical exam: Constitutional: Alert, in no distress. Head: Normocephalic. Eyes: Pupils are equal, round and reactive to light. Extraocular muscles intact. Ear, Nose and Throat: Canals clear. TMs normal. Normal nasal mucosa. No nasal discharge. No oral lesions. Neck: Supple, Full range of motion. No lymphadenopathy. No palpable thyroid masses. Respiratory: Clear to auscultation. Cardiovascular: S1 S2 regular. No murmurs. No carotid bruits. Gastrointestinal: Abdomen soft, non-tender, non-distended. Normal bowel sounds. No palpable masses. Genitourinary: No costovertebral angle tenderness. Neurologic:?Alert and oriented x 3, no focal deficits observed, CN 2-12 intact, tagcae-spvq-vazsig normal, sensation equal and symmetric, strength UE and LE 5/5 bilaterally, reflexes equal and symmetric.? Normal gait.? Patient able to heel walk, toe walk and walk heel-to-toe across the floor.? No pronator drift.? Negative Romberg. Skin: No rashes Musculoskeletal: Full range of motion of the spine. No midline or paraspinal tenderness. Patient has lower back pain with flexion and extension of the lumbar spine. Negative straight leg raises bilaterally. Extremities: Warm and well perfused. No clubbing, cyanosis or edema. Intact upper and lower peripheral pulses bilaterally. Psychiatric: Normal mood and affect [facility] Medical History (Updated 06/18/25 @ 13:10 by NICK Mccain) Constipation Screening for cardiovascular condition Nausea Low back pain Routine physical examination Class 1 obesity Easy bruisability Obesity, Class II, BMI 35-39.9, isolated (see actual BMI) Surgical History History of wisdom tooth extraction Family History Father Diabetes Mother Mental health disorder Sister Mental health disorder Maternal Grandmother Breast cancer Paternal Grandfather Prostate cancer Social History (Updated 06/17/25 @ 08:29 by Antoinette Neal MA) Household Members: [facility] Are you a primary direct care counselor to a significant other at home: No Do you presently have visiting nurse or other home services: No Alcohol intake: current Alcohol intake frequency: holidays/special occasions only Alcohol type: wine, hard liquor and other Patient Tobacco Use Status: Never used Tobacco e-Cigarette/Vaping Use: Never Used Second Hand Smoke Exposure: No Agree to transfusion: Yes service: No Current occupational status: employed 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 Current occupational exposures/hazards: No Cognitive needs: No Hearing needs: No Vision needs: Yes (Patient wears glasses) Questionnaire PHQ-9 Over the last 2 weeks, how often have you been bothered by any of the following problems? 1. Little interest or pleasure in doing things: not at all 2. Feeling down, depressed, or hopeless: not at all 3. Trouble falling or staying asleep, or sleeping too much: not at all 4. Feeling tired or having little energy: not at all 5. Poor appetite or overeating: not at all 6. Feeling bad about yourself - or that you are a failure or have let yourself or your family down: not at all 7. Trouble concentrating on things, such as reading the newspaper or watching television: not at all 8. Moving or speaking so slowly that other people could have noticed. Or the opposite - being so fidgety or restless that you have been moving around a lot more than usual: not at all 9. Thoughts that you would be better off or of hurting yourself in some way: not at all Total score: 0 Depression Screening Interpretation: Negative Depression Screening Done: Yes 29034 - PHQ-9 Billing: Yes Source: Developed by Drs. Miguel Dolan, Evangelina Olmos, Dionte Morgan and colleagues, with an educational malathi from [employer]. Thrive Questionnaire Date Thrive assessed: 06/17/25 I am a: Patient What is your living situation today?: I have a steady place to live Within the past 12 months, did the food you bought not last and you didn't have the money to get more?: Never true Within the past 12 months, did you worry whether your food would run out before you got money to buy more?: Never true Do you have trouble paying for medicines?: No Do you have trouble getting transportation to medical appointments?: No Do you have trouble paying your heating and electricity bill?: No Do you have trouble taking care of your child, family member or friend?: No Do you have trouble with day-to-day activities such as bathing, preparing meals, shopping, managing finances, etc.?: No Are you currently unemployed and looking for a job?: No Are you interested in more education?: No Please select the resources that you would like help with: None Currently or been in a relationship where the following occur: No concerns reported THRIVE Score: 0 AUDIT C Alcohol Use Questionnaire (AUDIT-C) 1. How often do you have a drink containing alcohol?: 2-4 times a month 2. How many drinks containing alcohol do you have on a typical day when you are drinking?: 3 or 4 3. How often do you have six or more drinks on one occasion?: Never Total Score: 3 CÉSAR-7 AMB Questionnaire CÉSAR-7 Date CÉSAR - 7 assessed: 06/17/25 Feeling nervous, anxious, or on edge: 0 = Not at all Not being able to stop or control worryin = Not at all Worrying too much about different things: 0 = Not at all Trouble relaxin = Not at all Being so restless that it is hard to sit still: 0 = Not at all Becoming easily annoyed or irritable: 0 = Not at all Feeling afraid as if something awful might happen: 0 = Not at all Total CÉSAR-7 score (0-4 normal; 5-9 mild; 10-14 moderate; 15-21 severe): 0 Source: Developed by Drs. Miguel Dolan, Evangelina Olmos, Dionte Morgan and colleagues, with an educational malathi from [employer]. CÉSAR-7 Assessment Billing CÉSAR-7 Assessment Tool: CÉSAR-7 Assessment 23924 Physical exam (Primary Care) Vital Signs: Last Vital Signs Temp 98.4 F 06/17/25 08:30 Pulse 90 06/17/25 08:30 Resp 12 06/17/25 08:30 BP 98/64 06/17/25 08:30 Pulse Ox 98 06/17/25 08:30 Oxygen Delivery Method Room Air 06/17/25 08:30 BMI result Body Mass Index 29.8 Tobacco/Smoking Status: Tobacco use Status Tobacco use date assessed 06/17/25 06/17/25 08:36 Patient Tobacco Use Status Never used Tobacco 06/17/25 08:29 e-Cigarette/Vaping Use Never Used 06/17/25 08:29 PHQ-9: PHQ-9 Score PHQ-9: Total score 0 06/17/25 08:42 Depression Screening Interpretation: Negative Thrive Assessment: Date of Thrive Assessment Date Thrive assessed 06/17/25 06/17/25 08:36 Currently or been in a relationship where the following occur: No concerns reported Coding Level of Care Code Est Pt Level 3 (39854) Est Pt Prev Care 18-39y(31372) Diagnoses Routine physical examination Z00.00 Chronic bilateral low back pain without sciatica M54.50; G89.29 Chronicity: chronic Back pain laterality: bilateral Sciatica presence: without sciatica Nausea R11.0 Class 1 obesity E66.811 Drug-induced constipation K59.03 Constipation type: drug induced constipation Additional Codes CÉSAR-7 Assessment Billing - CÉSAR-7 Assessment Tool: CÉSAR-7 Assessment 66406 ([id number]) PHQ-9 - 65292 - PHQ-9 Billing: Yes ([id number]) Assessment & Plan Assessment & Plan (1) Routine physical examination: Code(s): Z00.00 - Encounter for general adult medical examination without abnormal findings Category: Medical (2) Low back pain: Code(s): M54.50 - Low back pain, unspecified Category: Medical Qualifiers: Chronicity: chronic Back pain laterality: bilateral Sciatica presence: without sciatica Qualified Code(s): M54.50 - Low back pain, unspecified; G89.29 - Other chronic pain (3) Nausea: Code(s): R11.0 - Nausea Category: Medical (4) Class 1 obesity: Code(s): E66.811 - Obesity, class 1 Category: Medical (5) Constipation: Code(s): K59.00 - Constipation, unspecified Category: Medical Qualifiers: Constipation type: drug induced constipation Qualified Code(s): K59.03 - Drug induced constipation Plan Patient is seen today for a routine physical. As part of this visit we reviewed the following issues, which are considered and essential part of preventative health in this age group: - Breast Cancer screening - Annual Pediatric Social Worker exam - Blood pressure screening annually - Cholesterol screening - Osteoporosis prevention including calcium/vitamin D intake, weight bearing exercise & smoking cessation - Nutritional and exercise counseling - Counseling of injury prevention including fire prevention, smoke alarms and seat belt usage - Screening for depression - Education about skin cancer - Recommendations about immunizations - Recommendation of an eye exam - Screening for substance abuse Lower back pain possibly consistent with lumbar strain. Declines PT referral. Check x-ray. Constipation may also be contributing. See discussion below. I am concerned about ongoing gastrointestinal symptoms on GLP 1 with exacerbation of symptoms while on vacation. Patient had 2 episodes of bright red blood per rectum associated with constipation and diarrhea. If labs are abnormal or she has recurrence then she will need to be referred to Gastroenterology. She also has the report of her vision fading out when she stands up quickly which may be due to decreased p.o. intake from GLP 1 and soft BP. I advised her to stop taking the GLP 1 as a trial for a couple of weeks and follow up to see if these symptoms resolve. I have also advised her to have lab work completed for evaluation of other potential causes. She has an appointment set up for an eye exam. If this continues then we will proceed with an MRI of the head/brain. She has no neurological deficits on exam which is reassuring. Warning signs warranting ER follow up reviewed with the patient. She verbalized understanding and accepts this plan. Historically she has a lot of anxiety getting lab work done so I prescribed lorazepam to take prior to this. She will have someone drive her to and from the blood test. Follow up in 2-3 weeks for re-evaluation. Orders: Orders XR lumbar spine 2-3V Today M54.50 - Low back pain, unspecified, R11.0 - Nausea, Z00.00 - Encounter for general adult medical examination without abnormal findings, Z13.6 - Encounter for screening for cardiovascular disorders Amylase Today M54.50 - Low back pain, unspecified, R11.0 - Nausea, Z00.00 - Encounter for general adult medical examination without abnormal findings, Z13.6 - Encounter for screening for cardiovascular disorders Lipase Today M54.50 - Low back pain, unspecified, R11.0 - Nausea, Z00.00 - Encounter for general adult medical examination without abnormal findings, Z13.6 - Encounter for screening for cardiovascular disorders Complete Blood Count Auto Diff Today M54.50 - Low back pain, unspecified, R11.0 - Nausea, Z00.00 - Encounter for general adult medical examination without abnormal findings, Z13.6 - Encounter for screening for cardiovascular disorders IRON PROFILE Today D64.9 - Anemia, unspecified, M54.50 - Low back pain, unspecified, R11.0 - Nausea, Z00.00 - Encounter for general adult medical examination without abnormal findings, Z13.6 - Encounter for screening for cardiovascular disorders Comprehensive Met. Panel Today M54.50 - Low back pain, unspecified, R11.0 - Nausea, Z00.00 - Encounter for general adult medical examination without abnormal findings, Z13.6 - Encounter for screening for cardiovascular disorders Lyme IgG/IgM w/reflex to WB Today M54.50 - Low back pain, unspecified, R11.0 - Nausea, Z00.00 - Encounter for general adult medical examination without abnormal findings, Z13.6 - Encounter for screening for cardiovascular disorders Magnesium Today M54.50 - Low back pain, unspecified, R11.0 - Nausea, Z00.00 - Encounter for general adult medical examination without abnormal findings, Z13.6 - Encounter for screening for cardiovascular disorders Ferritin Today D64.9 - Anemia, unspecified, M54.50 - Low back pain, unspecified, R11.0 - Nausea, Z00.00 - Encounter for general adult medical examination without abnormal findings, Z13.6 - Encounter for screening for cardiovascular disorders TSH reflex Free T4 Today M54.50 - Low back pain, unspecified, R11.0 - Nausea, Z00.00 - Encounter for general adult medical examination without abnormal findings, Z13.6 - Encounter for screening for cardiovascular disorders Vitamin B12 and Folate Today D64.9 - Anemia, unspecified, M54.50 - Low back pain, unspecified, R11.0 - Nausea, Z00.00 - Encounter for general adult medical examination without abnormal findings, Z13.6 - Encounter for screening for cardiovascular disorders Lipid Panel Today E78.5 - Hyperlipidemia, unspecified, M54.50 - Low back pain, unspecified, R11.0 - Nausea, Z00.00 - Encounter for general adult medical examination without abnormal findings, Z13.6 - Encounter for screening for cardiovascular disorders Vitamin D 25-OH (D2 and D3) Today M85.80 - Other specified disorders of bone density and structure, unspecified site Referrals FIELD ASSISTANT Referral Z01.419 - Encounter for gynecological examination (general) (routine) without abnormal findings Medications: New lorazepam Take 30-60 minutes before procedure. 1 mg PO ONCE 1 tab 0RF
[2025-06-17 08:30] VITALS: BP 98/64; PULSE 90; RESP 12; TEMP 36.9; O2SAT 98; BMI 29.8
--- OUTSIDE RECORDS SUMMARY | 2025-06-17 09:05 | XMS_ITS | Clinical Summary ---
Author Organization [facility] Address [address] [place] [address] Phone Care Team Providers Care Supervisor Molding Name Role Phone Unavailable Primary Care Provider Unavailabl e Allergies No known active allergies Medications No known medications Active Problems No known active problems Social History Tobacco Use Types Packs/Day Years Used Date Smoking Tobacco: Never Smokeless Tobacco: Never Alcohol Use Standard Drinks/Week Comments Never 0 (1 standard drink = 0.6 oz pur e alcohol) Education Answer Date Recorded Are you interested in more education? Not on richie e 02/22/2023 Are you concerned about learning? Not on file 02/22/2023 No 02/22/2023 No 02/22/2023 Digital Access Answer Date Recorded No 03/26/2023 No 03/26/2023 Reliable internet access at home? Not on file 03/26/2023 Device with a working camera? Not on file Comments No Sex and Gender Information Value Date Recorded Sex Assigned at Not on file Legal Sex Female 7:06 PM EST Gender Identity Not on file Sexual Orientation Not on file Last Filed Vital Signs Vital Sign Reading Time Taken Comments Blood Pressure 120/78 12/19/2019 10:47 AM EST Pulse 84 12/19/2019 10:47 AM EST Temperature 37.4 C (99.3 F) 12/19/2019 10:47 AM EST Respiratory Rate - - Oxygen Saturation 98% 12/19/2019 10:47 AM EST Inhaled Oxygen Concentration - - Weight 95.3 kg (210 lb) 12/19/2019 10:47 AM EST Height 160 cm (5' 3 ) 12/19/2019 10:47 AM EST Body Mass Index 37.2 12/19/2019 10:47 AM EST Plan of Treatment Not on file Medical Devices Not on file Insurance [employer] O POS EPO AETNA O POS EPO AETNA [facility] A[facility] O POS EPO AETNA O POS EPO AETNA O POS EPO AETNA O POS EPO AETNA O POS EPO Additional Source Comments The information contained in this document represents components of the legal health record. It is not the complete legal health record.[facility]
--- OUTSIDE RECORDS SUMMARY | 2025-06-17 09:05 | XMS_ITS | Clinical Summary ---
Author Organization [facility] Address [address] [place] [address] Phone Care Team Providers Care Ship/Rec/Doc Control Name Role Phone Unavailable Primary Care Provider [...] 91 06/11/2018 10:21 AM EDT Temperature 36.9 C (98.5 F) 07/21/2015 12:00 AM EDT Respiratory Rate - - Oxygen Saturation - - Inhaled Oxygen Concentration - - Weight 97.1 kg (214 lb) 06/11/2018 10:21 AM EDT Height 162.6 cm (5' 4 ) 06/11/2018 10:21 AM EDT Body Mass Index 36.73 06/11/2018 10:21 AM EDT Plan of Treatment Health Maintenance Due Date Last Done Comments COVID-19 Vaccine ( season) 2024 Influenza Vaccines (#1) 2025 08/29/20 13, 10/22/2012, 09/24/2011, Additional history exists DTaP,Tdap,and Td Vaccines (8 - Td or [...] complete this topic Procedures * Due to [place] [employer] law, this organization might not be sharing sensitive test results. Procedure Name Priority Date/Time Associated Diagnosis Comments CHLAMYDIA AND GONORRHEA, AMPLIFIED Routine 06/11/2018 4:54 PM EDT Well adult exam from Last 3 Months or Most Recently Relevant to Health Maintenance Results * Due to [place] law, this organization might not be sharing sensitive test results. * Chlamydia and Gonorrhea, Amplified (06/11/2018 4:54 PM EDT) Chlamydia Trachomatis, DNA Probe NEGATIVE (NEG) [facility] Comment: No Chlamydia Trachomatis RNA detected in this patient's sample (REFERENCE RANGE/NORMAL VALUE: NOT DETECTED) Note: This test uses floral artist- mediated amplification method to detect rRNA from C. Trachomatis URINE GC AMP PROBE NEGATIVE (NEG) [facility] Comment: No Neisseria Gonorrhoeae RNA detected in this patient's sample (REFERENCE RANGE/NORMAL VALUE: NOT DETECTED) NOTE: This test uses floral artist-mediated amplification method to detect rRNA from N.Gonorrhoeae. [...] without risk of sexual abuse. Consult the [facility] if needed. Contact phone number . Therapeutic failure or success cannot be determined with the Aptima Combo2 assay since nucleic acid may persist following appropriate antimicrobial therapy. The Centers for Disease Control and Prevention (CDC) recommends confirmatory retesting using culture or a different nucleic acid amplification test when positive results occur, if indicated. Testing performed or reported by [facility], a Service of [facility], [facility] [place] [address] [facility] [id number] Franny Foster MD, PhD, Solar Process Engineer Urine 06/11/2018 4:54 PM EDT 06/11/2018 9:10 PM EDT Erika Kinney NP LAB MICROBIOLOGY - GENERAL ORDER SHIRA Final Result [facility] from Last 3 Months or Most Recently Relevant to Health Maintenance Insurance [facility]
== END 2025-06-17 09:13 | disposition home or self-care (01) ==
LOC: HO.HMCFM 08:20
PROVIDERS: PCP Physician Assistant Medical; Visit Provider Physician Assistant Medical
DX: Z00.00 Encounter for general adult medical examination without abnormal findings (principal); M54.50 Low back pain, unspecified; E66.811 Obesity, class 1; Z68.29 Body mass index [BMI] 29.0-29.9, adult; G89.29 Other chronic pain; R11.0 Nausea; K59.03 Drug induced constipation

== ENCOUNTER → 2025-06-17 08:19 | Outpatient (BNVA) | payer BC, SELFPAY | PROVIDERS: PCP Physician Assistant Medical; Visit Provider Physician Assistant Medical | DX: Z00.00 Encounter for general adult medical examination without abnormal findings (principal); M54.50 Low back pain, unspecified; G89.29 Other chronic pain; R11.0 Nausea; E66.811 Obesity, class 1; K59.03 Drug induced constipation; T50.905A Adverse effect of unspecified drugs, medicaments and biological substances, initial encounter; Z13.31 Encounter for screening for depression; Z13.30 Encounter for screening examination for mental health and behavioral disorders, unspecified | CPT/HCPCS: 96127 ==

== ENCOUNTER 2025-06-18 07:53 | Outpatient (REF) | payer BC, SELFPAY ==
--- OUTSIDE RECORDS SUMMARY | 2024-09-18 06:00 | XMS_ITS ---
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 Name Role Phone ECKERT, CHARLES Unavailable [phone] REASON FOR VISIT BC OPTIONS Encounters Encounter Location Date Provider Diagnosis [facility] [address] [address] 09/18/2024 CHARLES ECKERT Encounter for other general counseling and advice on contraception Z30.09 Assessments Encounter Date Diagnosis (ICD Code) Assessment Notes Treatment Notes Treatment Clinical Notes Section Notes 09/18/2024 Encounter for other general counseling and advice on contraception (ICD-10 - Z30.09) Plan Of Treatment No Information Progress Notes * RAGHAV REEDB:1995 (30 yo F)Acc No.[id number]:09/18/2024 PROGRESS NOTES Patient: DEANNA WEBB Provider: Jessica ECKERT MD :1995 A ge:29 Y S ex:Female Date:09/18/2024 Address:[address] [place], [place] [id number] Subjective: * Chief Complaints: * 1 . BC OPTIONS. * HPI: C onstitutional: Deanna is a 29 yo G0 with LMP who presents today for contraceptive options. Current contraception methodOCPs/condoms. She is not happy with her current method and would like to discuss the IUD in particular. She was started on the weight loss medication Zepbound . Per UpToDate: Hormonal Contraceptives: Tirzepatide may decrease the serum concentration of Hormonal Contraceptives. Management: Patients using oral hormonal contraceptives should switch to a non-oral contraceptive method, or add a barrier method of contraception, for 4 weeks after initiation of tirzepatide and for 4 weeks after each dose escalation of tirzepatide. Risk D: Consider therapy modification Relationship status: . She does agree to have STI testing. During the visit, the following areas of concern were addressed: Options discussed include IUDs as well as barrier options (male & female condoms, diaphragms) and periodic abstinence. Sterilization was not discussed. The risks and side effects of the methods and the relative risk/benefit ratio were discussed for each. She was advised of the importance of maintaining a monogamous relationship, and should discuss this with her partner, as well. She is also advised to continue using condoms with every sexual encounter to prevent infections. IUD: She was instructed that this is best inserted at the end of a menses, and that she should call at the beginning of her next menses to make an appointment for insertion. DNA probe for chlamydia and gonorrhea was taken at this visit. Side effects and potential complications were discussed with her, including irregular bleeding, cramping, vaginal discharge, possibility of discomfort for partner during intercourse from strings, heavier or marble setter menses, expulsion of IUD, uterine perforation with loss of IUD and potential for surgical removal, ectopic or tubal , infection with potential loss of future fertility. All questions answered to the patient's satisfaction. After careful consideration, she has chosen as her method of contraception. * Medical History: Objective: * Vitals: Assessment: * Assessment: 1. E ncounter for other general counseling and advice on contraception - Z30.09 (Primary) ? Plan: * Treatment: * Images: Billing Information: * Visit Code: * Procedure Codes: * Electronic signature of CHARLES ECKERT MD on 06/18/2025 at 07:56 AM EDT Sign off status: Pending * Provider: Jessica ECKERT MD Date: 11/18/2023 Generated for Justine vásquez/Betsy/Altaitting on: 0 06/18/2025 07:56 AM EDT History and Physical Notes * HPI (History of Present Illness) Category Sub-Category Detail Notes Category Not es Constitutional Deanna is a 29 yo G0 with LMP who presents today for contraceptive options. Current contraception methodOCPs/condoms. She is not happy with her current method and would like to discuss the IUD in particular. She was started on the weight loss medication Zepbound . Per UpToDate: Hormonal Contraceptives: Tirzepatide may decrease the serum concentration of Hormonal Contraceptives. Management: Patients using oral hormonal contraceptives should switch to a non-oral contraceptive method, or add a barrier method of contraception, for 4 weeks after initiation of tirzepatide and for 4 weeks after each dose escalation of tirzepatide. Risk D: Consider therapy modification Relationship status: . She does agree to have STI testing. During the visit, the following areas of concern were addressed: Options discussed include IUDs as well as barrier options (male & female condoms, diaphragms) and periodic abstinence. Sterilization was not discussed. The risks and side effects of the methods and the relative risk/benefit ratio were discussed for each. She was advised of the importance of maintaining a monogamous relationship, and should discuss this with her partner, as well. She is also advised to continue using condoms with every sexual encounter to prevent infections. IUD: She was instructed that this is best inserted at the end of a menses, and that she should call at the beginning of her next menses to make an appointment for insertion. DNA probe for chlamydia and gonorrhea was taken at this visit. Side effects and potential complications were discussed with her, including irregular bleeding, cramping, vaginal discharge, possibility of discomfort for partner during intercourse from strings, heavier or marble setter menses, expulsion of IUD, uterine perforation with loss of IUD and potential for surgical removal, ectopic or tubal , infection with potential loss of future fertility. All questions answered to the patient's satisfaction. After careful consideration, she has chosen as her method of contraception.
--- NOTE | ~2025-06-18 | XR_ITS ---
EXAMINATION: XR LUMBOSACRAL SPINE CLINICAL INFORMATION: M54.50 - Low back pain, unspecified COMPARISON: None available. TECHNIQUE: AP and lateral views. FINDINGS: There is a levoconvex curvature apex at L3. 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 There is a grade 1 retrolisthesis at L4-5. No lytic or blastic lesions. XR/XR lumbar spine 2-3V IMPRESSION: Grade 1 anterolisthesis L5-S1 secondary to spondylolysis pars interarticularis. Levoconvex scoliosis, mild to moderate. Grade 1 retrolisthesis L4-5. Electronically signed by: Garett Gloria MD 06/18/2025 08:54 AM EDT
--- OUTSIDE RECORDS SUMMARY | 2025-06-18 07:56 | XMS_ITS | Clinical Summary ---
Author Organization [facility] Address [address] [place] [address] Phone Care Team Providers Care Beef Tagger Name Role Phone Unavailable Primary Care Provider [...] O POS EPO AETNA O POS EPO [facility]PO AETNA O POS EPO AETNA O POS EPO AETNA O POS EPO AET[employer] O POS EPO [employer] O POS EPO Additional Source Comments The information contained in this document represents components of the legal health record. It is not the complete legal health record.[facility]
--- OUTSIDE RECORDS SUMMARY | 2025-06-18 07:56 | XMS_ITS | Clinical Summary ---
Author Organization [facility] Address [address] [place] [address] Phone Care Team Providers Care Emergency Planning And Response Manager Name Role Phone Unavailable Primary Care Provider [...] complete this topic Procedures * Due to [place] Neuropure law, this organization might not be sharing sensitive test results. Procedure Name Priority Date/Time Associated Diagnosis Comments CHLAMYDIA AND GONORRHEA, AMPLIFIED Routine 06/11/2018 4:54 PM EDT Well adult exam from Last 3 Months or Most Recently Relevant to Health Maintenance Results * Due to [place] Neuropure law, this organization might not be sharing sensitive test results. * Chlamydia and Gonorrhea, Amplified (06/11/2018 4:54 PM EDT) Chlamydia Trachomatis, DNA Probe NEGATIVE (NEG) [facility] Comment: No Chlamydia Trachomatis RNA detected in this patient's sample (REFERENCE RANGE/NORMAL VALUE: NOT DETECTED) Note: This test uses motor home electrical foreman- mediated amplification method to detect rRNA from C. Trachomatis URINE GC AMP PROBE NEGATIVE (NEG) [facility] Comment: No Neisseria Gonorrhoeae RNA detected in this patient's sample (REFERENCE RANGE/NORMAL VALUE: NOT DETECTED) NOTE: This test uses motor home electrical foreman-mediated amplification method to detect rRNA from N.Gonorrhoeae. [...] without risk of sexual abuse. Consult the [facility] if needed. Contact phone number . Therapeutic failure or success cannot be determined with the Aptima Combo2 assay since nucleic acid may persist following appropriate antimicrobial therapy. The Centers for Disease Control and Prevention (CDC) recommends confirmatory retesting using culture or a different nucleic acid amplification test when positive results occur, if indicated. Testing performed or reported by [facility], a Service of [facility], [facility] [place] [address] [facility] [id number] Franny Foster MD, PhD, Documentation Manager Urine 06/11/2018 4:54 PM EDT 06/11/2018 9:10 PM EDT Erika Kinney NP LAB MICROBIOLOGY - GENERAL ORDER SHIRA Final Result [facility] from Last 3 Months or Most Recently Relevant to Health Maintenance Insurance [facility]
[2025-06-18 08:33] LABS: MANUAL DIFF FLAG NO
[2025-06-18 08:40] LABS: Hematocrit 37.9 % (37.0-47.0); Hemoglobin 13.1 g/dl (12.0-16.0); Imm Gran Abs Auto 0.03 X10*3/uL (0.00-0.03); Imm Gran Pct Auto 0.3 % (0.0-0.4); Lymphocytes Absolute Auto 2.1 X10*3/uL (1.2-4.9); Mean Corpuscular HGB Conc 34.6 g/dl (31.0-35.0); Mean Corpuscular Hemoglobin 30.9 pg (27.0-33.0); Mean Corpuscular Volume 89.4 fL (80.0-98.0); NRBC Abs Auto 0.000 X10*3/uL (0.0-0.012); NRBC Pct Auto 0.0 /100WBC (0.0-0.2); Platelet Count 323 X10*3/uL (160-400); Red Blood Count 4.24 X10*6/uL (4.20-5.50); White Blood Count 9.4 X10*3/uL (4.8-10.8)
[2025-06-18 09:22] LABS: Alanine Aminotransferase 23 U/L (0-31); Albumin Level 4.8 g/dL (3.5-5.0); Alkaline Phosphatase 87 U/L (39-117); Anion Gap 13 (12-20); Aspartate Amino Transferase 24 U/L (5-31); Blood Urea Nitrogen 14 mg/dL (9-16); Calcium 9.1 mg/dL (8.4-10.2); Carbon Dioxide 18 mmol/L (22-29); Chloride 113 mmol/L (96-108); Cholesterol 175 mg/dL (<200); Estimated Glomerular Filt Rate > 60; HDL Cholesterol 44 mg/dL (>40); Iron 75 mcg/dL (30-160); Lipase 42 U/L (8-78); Magnesium 2.3 mg/dL (1.6-2.6); Percent Iron Saturation 27 % (15-50); Potassium 4.0 mmol/L (3.3-5.1); Sodium 140 mmol/L (135-145); Total Iron Binding Capacity 281 mcg/dL (228-428); Total Protein 7.6 g/dL (6.5-8.0); Triglycerides 61 mg/dL (<150); Unsaturated Iron Binding 206 ug/dL
[2025-06-18 09:32] LABS: Ferritin 33 ng/mL (10-122)
[2025-06-18 09:46] LABS: Amylase 61 U/L (28-100); Folate 5.5 ng/mL (> or = 4.0); Vitamin B12 753 pg/mL (200-900)
[2025-06-19 10:58] LABS: Lyme Abs Screen <0.90 index
[2025-06-23 17:24] LABS: Vitamin D 25-OH, D2 <4 ng/mL; Vitamin D 25-OH, D3 32 ng/mL; Vitamin D 25-OH, Total 32 ng/mL (30-100)
== END 2025-06-18 07:54 | disposition home or self-care (01) ==
LOC: HO.XRAY 07:53
PROVIDERS: PCP Physician Assistant Medical; Visit Provider Physician Assistant Medical
DX: Z00.00 Encounter for general adult medical examination without abnormal findings (principal); R23.3 Spontaneous ecchymoses; R68.89 Other general symptoms and signs; D64.9 Anemia, unspecified; M54.50 Low back pain, unspecified; R11.0 Nausea; Z13.6 Encounter for screening for cardiovascular disorders; M85.80 Other specified disorders of bone density and structure, unspecified site; E78.5 Hyperlipidemia, unspecified
CPT/HCPCS: 36415; 72100; 80053; 80061; 82150; 82306; 82607; 82728; 82746; 83540; 83690; 83735; 84443; 85025; 86617; 86618

== ENCOUNTER → 2025-06-18 08:34 | Outpatient (BNV) | payer BC, SELFPAY | PROVIDERS: PCP Physician Assistant Medical; Visit Provider Radiology Diagnostic Radiology | DX: M43.17 Spondylolisthesis, lumbosacral region (principal) | CPT/HCPCS: 72100 ==

== ENCOUNTER 2025-07-08 09:50 | Outpatient (AMB) | payer BC, SELFPAY ==
--- OUTSIDE RECORDS SUMMARY | 2024-09-18 06:00 | XMS_ITS ---
Author Organization [facility] Address [address] [address] Care Team Providers Care Polisher And Sander Name Role Phone ECKERT, CHARLES Unavailable [phone] REASON FOR VISIT BC OPTIONS Encounters Encounter Location Date Provider Diagnosis [facility] [address] [address] 09/18/2024 CHARLES ECKERT Encounter for other general counseling and advice on contraception Z30.09 Assessments Encounter Date Diagnosis (ICD Code) Assessment Notes Treatment Notes Treatment Clinical Notes Section Notes 09/18/2024 Encounter for other general counseling and advice on contraception (ICD-10 - Z30.09) Plan Of Treatment No Information Progress Notes * RAGHAV REEDB:1995 (30 yo F)Acc No.[id number]:09/18/2024 PROGRESS NOTES Patient: DEANNA WEBB Provider: Jessica ECKERT MD :1995 A ge:29 Y S ex:Female Date:09/18/2024 Address:[address] [place], [place] [id number] Subjective: * Chief Complaints: * 1 . [...] partner during intercourse from strings, heavier or warehouse person menses, expulsion of IUD, uterine perforation with [...] Electronic signature of CHARLES ECKERT MD on 07/08/2025 at 11:39 AM EDT Sign off status: Pending * Provider: Jessica ECKERT MD Date: 11/18/2023 Generated for Justine vásquez/Betsy/Altaitting on: 0 07/08/2025 11:39 AM EDT History and Physical Notes * [...] partner during intercourse from strings, heavier or warehouse person menses, expulsion of IUD, uterine perforation with loss of IUD and potential for surgical removal, ectopic or tubal , infection with potential loss of future fertility. All questions answered to the patient's satisfaction. After careful consideration, she has chosen as her method of contraception.
--- OUTSIDE RECORDS SUMMARY | 2025-03-08 05:30 | XMS_ITS ---
Author Organization [facility] [employer] [facility] Address [address] [place] [address] Care Team Providers Care Glue Clamp Operator Name Role Phone CHARLES ECKERT Unavailable [phone] REASON FOR VISIT Annual MANAGER TECHNICAL SERVICES Physical Medications Medication SIG (Take, Route, Frequency, Duration) Notes Start Date End Date Status Progesterone 200 MG 2 capsule at bedtime Orally Once a day; Duration: 12 days 09/28/2024 Active Norgestimate-Eth Estradiol 0.25-35 MG-MCG 1 tablet Orally Once a day; Duration: 84 days Not-Takin g Zepbound 7.5 MG/0.5ML 0.5 mL Subcutaneous Active Encounters Encounter Location Date Provider Diagnosis [facility] [employer] [address] [address] 03/08/2025 CHARLES ECKERT Encounter for gynecological examination (general) (routine) without abnormal findings Z01.419 and Encounter for screening for infections with a predominantly sexual mode of transmission Z11.3 Assessments Encounter Date Diagnosis (ICD Code) Assessment Notes Treatment Notes Treatment Clinical Notes Section Notes 03/08/2025 Encounter for gynecological examination (general) (routine) without abnormal findings (ICD-10 - Z01.419) Discussed cervical cancer screening with cytology every 3 years as per ASCCP guidelines. Advised continued annual pelvic exams. Patient encouraged to increase her level of exercise. SBE technique encouraged/tau ght. Safe sexual practices and STI prevention discussed. 03/08/2025 Encounter for screening for infections with a predominantly sexual mode of transmission (ICD-10 - Z11.3) Plan Of Treatment Treatment Notes Assessment Notes Encounter for gynecological examination (general) (routine) without abnormal findings Discussed cervical cancer screening with cytology every 3 years as per ASCCP guidelines. Advised continued annual pelvic exams. Patient encouraged to increase her level of exercise. SBE technique encouraged/taught. Safe sexual practices and STI prevention discussed. Next Appt Details Follow Up: 1 Year, Reason: Y early Wrapper Sheeter Exam Progress Notes * RAGHAV REEDB:1995 (30 yo F)Acc No.[id number]:03/08/2025 PROGRESS NOTES Patient: DEANNA WEBB Provider: Jessica ECKERT MD :1995 A ge:29 Y S ex:Female Date:03/08/2025 Address:[address] [place], [place] [id number] Subjective: * Chief Complaints: * 1 . Annual MANAGER TECHNICAL SERVICES Physical. 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 She has been in state of good health since her last exam. She has the following concerns: none* Last seen in 09/2024 for oligomenorrhea after stopping OCPs. She was to have done Day 3 labs, but no results are on the chart. She reports . She has received the Moderna Covid-19 vaccine. Relationship status: *partnered for two years. She is sexually active. Sexual partner(s): male. She does wish to have STI testing. Menses: *monthly, lasting 5 days, heavy for 2 days then tapering. She changes a regular tampon every 2 hours, with about 50-60% saturation. No intermenstrual bleeding. Contraception: condoms* The patient has never had an abnormal pap smear. Her most recent pap smear here was 03/03/24 - NIL. Next due in 2026. The patient does* exercise. She exercises x 3-4 days/week by spinning. * ROS: A nnual Wrapper Sheeter Exam ROS: Bowel habit changes d enies. B ladder symptoms d enies. V aginal discharge, unusual d enies. V aginal itch or odor d enies. w eight or appetite changes d enies. C hest pains, SOB d enies. d epression d enies.? B reast: Denies B reast lump. D enies N ipple discharge.? H ematology: Denies S wollen glands. S kin: Patient denies c hanging moles. P sychiatric: Denies A nxiety. * Medical History: * Medications: T shayleeg Zepbound 7.5 MG/0.5ML Solution Auto-injector 0.5 mL Subcutaneous , Taking Progesterone 200 MG Capsule 2 capsule at bedtime Orally Once a day , Not-Taking Norgestimate-Eth Estradiol 0.25-35 MG-MCG Tablet 1 tablet Orally Once a day Objective: * Vitals: * Examination: G eneral Examination: GENERAL APPEARANCE: i n no acute distress,well developed, well nourished,bakery team leader present in room. HEAD: n ormocephalic, atraumatic. NECK/THYROID: n nam supple, full range of motion,thyroid normal. LYMPH NODES: n o axillary or supraclavicular adenopathy.? SKIN: n ormal,good turgor,no rashes,no suspicious lesions.? BREASTS: n ormal,no dimpling,no discharge,no drainage,no masses palpable bilaterally,nontender. ABDOMEN: s oft, non-tender, non distended without masses or hepatosplenomegay. BACK: n o costovertebral angle tenderness. FEMALE GENITOURINARY: V ulva without lesions or masses, vagina pink without abnormal discharge, lesions or masses, cervix appears normal and is not tender to palpation, uterus is normal size, mobile, nontender and anteverted, ovaries are not palpable. NEUROLOGIC: a lert and oriented,gait normal. PSYCH: a lert, oriented,cognitive function intact,cooperative with exam,good eye contact,mood/affect full range,speech clear. Assessment: * Assessment: 1. E ncounter for gynecological examination (general) (routine) without abnormal findings - Z01.419 (Primary) 2 . E ncounter for screening for infections with a predominantly sexual mode of transmission - Z11.3 Plan: * Treatment: * Follow Up: 1 Year (Reason: Yearly Wrapper Sheeter Exam) * Images: Billing Information: * Visit Code: 22435 Preventive Care Est Pt. Age 18-39. 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 She has been in state of good health since her last exam. She has the following concerns: none* Last seen in 09/2024 for oligomenorrhea after stopping OCPs. She was to have done Day 3 labs, but no results are on the chart. She reports . She has received the Moderna Covid-19 vaccine. Relationship status: *partnered for two years. She is sexually active. Sexual partner(s): male. She does wish to have STI testing. Menses: *monthly, lasting 5 days, heavy for 2 days then tapering. She changes a regular tampon every 2 hours, with about 50-60% saturation. No intermenstrual bleeding. Contraception: condoms* The patient has never had an abnormal pap smear. Her most recent pap smear here was 03/03/24 - NIL. Next due in 2026. The patient does* exercise. She exercises x 3-4 days/week by spinning. Examination Category Sub-Category Detail Notes Category Not es General Examination GENERAL APPEARANCE: in no ac [place] distress, well developed, well nourished, bakery team leader present in room HEAD: normocephalic, atrau matic NECK/THYROID: neck supple, full ra nge of motion, thyroid normal ABDOMEN: soft, non-tender, no n distended without masses or hepatosplenomegay NEUROLOGIC: alert and oriented, gait normal SKIN: normal, good turgor, no rashes, no suspicious lesions BACK: no costovertebral an gle tenderness BREASTS: normal, no dimpling, no discharge, no drainage, no masses palpable bilaterally, nontender LYMPH NODES: no axillary or supra clavicular adenopathy PSYCH: alert, oriented, cog nitive function intact, cooperative with exam, good eye contact, mood/affect full range, speech clear FEMALE GENITOURINARY: Vulva without lesi ons or masses, vagina pink without abnormal discharge, lesions or masses, cervix appears normal and is not tender to palpation, uterus is normal size, mobile, nontender and anteverted, ovaries are not palpable
--- NOTE | 2025-07-08 10:03 | A.OFFPC_ITS ---
Vital Signs 07/08/25 10:04 Height 5 ft 3 in Weight 172 lb 8 oz BMI 30.6 BP 100/62 Blood Pressure Location Rt brachial Position Sitting Respiration 13 Pulse 72 Pulse Source Pulse Oximeter Temp 97.5 F Temp Source Temporal Artery Scan Pulse Oximetry (%) 97 Oxygen Delivery Method Room Air Intake Visit Reasons: recheck after stopping Zepbound Intake Note: Deanna presents in the office today after stopping the Zepbound. Allergies No Known Allergies Allergy (Verified 07/08/25 10:03) Medication List - Last Reconciled 07/09/25 by NICK Mccain lorazepam 1 mg PO ONCE ondansetron 4 mg PO Q8H PRN 10 days semaglutide (weight loss) (Wegovy) 0.25 mg (0.5 mL) subcut QWEEK Tobacco use date assessed: 07/08/25 Dental Screening Dental Screen Date: 07/08/25 Did you have a dental visit in the last 12 months?: Yes Did you have a dental problem in the last 6 months where you did not have access to dental care?: No Was dental information given to patient?: Patient has dentist HPI HPI Comments History of Present Illness Details This is a 29-year-old female with a past medical history of obesity presenting for follow up. She recently was instructed to discontinue Zepbound because she reported that when she stood up quickly her vision was fading out for a few second. Her blood pressure at her appointment was 98/64. She did report appetite reduction on the medication. She had titrated to 7.5 mg weekly. Since discontinuing the medication these episodes stopped. She had also reported GI side effects including constipation and straining with 2 episodes of blood in her stool. Her GI side effects also resolved after discontinuing the medication. She has gained some weight back. She is still following a low-carbohydrate and doing spin class. She will like to try an alternative. She had lab work completed on 06/18/2025 including a normal CBC, renal function, electrolytes, liver function, iron, ferritin, pancreatic enzyme, B12, vitamin-D, TSH and Lyme testing. She was also evaluated for lower back pain, and she had an x-ray completed which showed retrolisthesis and lumbosacral spondylolysis. Her back pain is improving, and she was referred to physiatry. She was contacted to schedule the appointment. She will call back. ROS: Constitutional: No unexplained weight loss, fever, chills, fatigue or night sweats. Eyes: No double vision, eye pain, eye redness, eye discharge. Denies vision changes. ENT: No hearing loss, sneezing, congestion, runny nose or sore throat. Respiratory: No shortness of breath, cough or sputum production. Cardiovascular: No chest pain, chest pressure or chest discomfort. No palpitations or pedal edema. Gastrointestinal: see HPI Genitourinary: No dysuria, hematuria, urinary frequency. Neurologic: No headache, dizziness, syncope, unilateral weakness, ataxia, numbness or tingling in the extremities. Denies seizures and tremors. Musculoskeletal: See HPI. No joint pain or joint swelling.. Hematologic/Lymphatics: No bleeding or bruising. No painful lymph nodes. Skin: No rash or itching. Endocrine: No cold or heat intolerance. No polyuria or polydipsia. Psychiatric: No depression or anxiety. No SI/HI. Physical exam: Constitutional: Alert, in no distress. Eyes: Pupils are equal, round and reactive to light. Extraocular muscles intact. Neck: Supple, Full range of motion. No lymphadenopathy. No palpable thyroid masses. Respiratory: Clear to auscultation. Cardiovascular: S1 S2 regular. No murmurs. Gastrointestinal: Abdomen soft, non-tender, non-distended. Normal bowel sounds. No palpable masses. Extremities: Warm and well perfused. No clubbing, cyanosis or edema. [facility] Medical History (Updated 06/18/25 @ 15:47 by NICK Mccain) Retrolisthesis of vertebrae Spondylolysis, lumbosacral region Constipation Screening for cardiovascular condition Nausea Low back pain Routine physical examination Class 1 obesity Easy bruisability Obesity, Class II, BMI 35-39.9, isolated (see actual BMI) Surgical History History of wisdom tooth extraction Family History Father Diabetes Mother Mental health disorder Sister Mental health disorder Maternal Grandmother Breast cancer Paternal Grandfather Prostate cancer Social History (Updated 07/08/25 @ 10:04 by Antoinette Neal MA) Household Members: Family Both parents involved: Yes Caregiver staying overnight: No Housing: Condominium Are you a primary care coordination manager to a significant other at home: No Do you presently have visiting nurse or other home services: No 75 years or older and lives alone: No Alcohol intake: current Alcohol intake frequency: holidays/special occasions only Alcohol type: wine, hard liquor and other Patient Tobacco Use Status: Never used Tobacco e-Cigarette/Vaping Use: Never Used Second Hand Smoke Exposure: No Agree to transfusion: Yes service: No Current occupational status: employed 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 Current occupational exposures/hazards: No Cognitive needs: No Hearing needs: No Vision needs: Yes (Patient wears glasses) Questionnaire Thrive Questionnaire Date Thrive assessed: 12/31/24 I am a: Patient What is your living situation today?: I have a steady place to live Within the past 12 months, did the food you bought not last and you didn't have the money to get more?: Never true Within the past 12 months, did you worry whether your food would run out before you got money to buy more?: Never true Do you have trouble paying for medicines?: No Do you have trouble getting transportation to medical appointments?: No Do you have trouble paying your heating and electricity bill?: No Do you have trouble taking care of your child, family member or friend?: No Do you have trouble with day-to-day activities such as bathing, preparing meals, shopping, managing finances, etc.?: No Are you currently unemployed and looking for a job?: No Are you interested in more education?: No Please select the resources that you would like help with: None Currently or been in a relationship where the following occur: No concerns reported THRIVE Score: 0 CÉSAR-7 AMB Questionnaire CÉSAR-7 Date CÉSAR - 7 assessed: 06/17/25 Source: Developed by Drs. Miguel Dolan, Evangelina Olmos, Dionte Morgan and colleagues, with an educational malathi from [employer]. Physical exam (Primary Care) Vital Signs: Last Vital Signs Temp 97.5 F 07/08/25 10:04 Pulse 72 07/08/25 10:04 Resp 13 07/08/25 10:04 BP 100/62 07/08/25 10:04 Pulse Ox 97 07/08/25 10:04 Oxygen Delivery Method Room Air 07/08/25 10:04 BMI result Body Mass Index 30.6 Tobacco/Smoking Status: Tobacco use Status Tobacco use date assessed 07/08/25 07/08/25 10:08 Patient Tobacco Use Status Never used Tobacco 07/08/25 10:08 e-Cigarette/Vaping Use Never Used 07/08/25 10:08 Thrive Assessment: Date of Thrive Assessment Date Thrive assessed 12/31/24 07/08/25 10:08 Currently or been in a relationship where the following occur: No concerns reported Coding Level of Care Code Est Pt Level 4 (71273) Complex EM visit Add On G2211 Diagnoses Class 1 obesity E66.811 Assessment & Plan Assessment & Plan (1) Class 1 obesity: Code(s): E66.811 - Obesity, class 1 Category: Medical Plan The patient's symptoms resolved and can be attributed to side effects of Zepbound. She would like to try an alternative. We will try a low dose of Wegovy 0.25 mg weekly. She will report any side effects on the medication. She denies contraindications to GLP 1. We discussed it will require a prior authorization. Her insurance will also be changing in a few months, and her new insurance may not cover this medication. Continue lifestyle modifications. Recommended low carb, regular exercise, avoidance of alcohol. Follow up in 3 months or sooner as needed. Medications: New semaglutide (weight loss) (Wegovy) administer weeks 1 through 4 of therapy 0.25 mg (0.5 mL) subcut QWEEK 2 mL 0RF
[2025-07-08 10:04] VITALS: BP 100/62; PULSE 72; RESP 13; TEMP 36.4; O2SAT 97; BMI 30.6
--- OUTSIDE RECORDS SUMMARY | 2025-07-08 11:39 | XMS_ITS | Clinical Summary ---
Author Organization [facility] Address [address] [place] [address] Phone Care Team Providers Care Instrument Repairer Name Role Phone Unavailable Primary Care Provider [...] O POS EPO AET[employer] O POS [facility] AET[employer] O POS EPO AET[employer] O POS EPO AET[employer] O POS EPO AET[employer] O POS EPO AET[employer] O POS EPO Additional Source Comments The information contained in this document represents components of the legal health record. It is not the complete legal health record.[facility]
--- OUTSIDE RECORDS SUMMARY | 2025-07-08 11:39 | XMS_ITS | Patient Health Record ---
Author Organization [facility] Address [address] [address] Care Team Providers Care Supervisor Asbestos Removal Name Role Phone CHARLES ECKERT Unavailable [phone] Allergies No Known Allergies Reason For Referral No Information Medications Medication SIG (Take, Route, Frequency, Duration) Notes Start Date End Date Status Progesterone 200 MG 2 capsule at bedtime Orally Once a day; Duration: 12 days 09/28/2024 Active Norgestimate-Eth Estradiol 0.25-35 MG-MCG 1 tablet Orally Once a day; Duration: 84 days Not-Takin g Zepbound 7.5 MG/0.5ML 0.5 mL Subcutaneous Active Social History AUDIT-C (Standard) Question Answer [...] Status W/U Status Risk Notes Problem Obesity (991909362) Obesity, unspecified (E66.9) Active confirmed Problem Oligomenorrhea (17360216) Oligomenorrhea, unspecified (N91.5) Active confirmed Problem Abnormal uterine bleeding (20763473954479) Abnormal uterine and vaginal bleeding, unspecified (N93.9) Active confirmed Problem COVID-19 (455593747) COVID-19 (U07.1) Active confirmed Vital Signs Temperature 98.0 degrees Fahrenheit 09/28/2024 Blood pressure diastolic 78 mm Hg 09/28/2024 Height 63 in 09/28/2024 Blood pressure systolic 110 mm Hg 09/28/2024 Weight 204 lbs 09/28/2024 BMI 36.13 kg/m2 09/28/2024 Encounters Encounter Location Date Provider Diagnosis [address] [address] 03/08/2025 CHARLES ECKERT Encounter for gynecological examination (general) (routine) without abnormal findings Z01.419 and Encounter for screening for infections with a predominantly sexual mode of transmission Z11.[address] [address] 09/28/2024 CHARLES ECKERT Oligomenorrhea, unspecified N91.[address] [address] 09/08/2024 CHARLES ECKERT Assessments Encounter Date Diagnosis [...] then will call to schedule a consult. 03/08/2025 Encounter for gynecological examination (general) (routine) without abnormal findings (ICD-10 - Z01.419) Discussed cervical cancer screening with cytology every 3 years as per ASCCP guidelines. Advised continued annual pelvic exams. Patient encouraged to increase her level of exercise. SBE technique encouraged/taug ht. Safe sexual practices and STI prevention discussed. 03/08/2025 Encounter for screening for infections with a predominantly sexual mode of transmission (ICD-10 - Z11.3) Plan Of Treatment Pending Test Test Name Order Date Ultrasound : Pelvic 07/18/2015 FREE TESTOSTERONE 07/06/2015 TESTOSTERONE 07/06/2015 [id number] 09/28/2024 [id number] 03/03/2024 HBsAg Screen-[id number] 03/03/2024 HIV Ab/p24 Ag with Reflex-[id number] 024 TSH reflex to [id number] 09/28/2024 HCV Antibody-[id number] 03/03/2024 FSH+LH+E2 09/28/2024 Insurance Providers Payer Name Payer Address Payer Phone Subscriber Number Group Number Insured Name Patient Relationship to Insured Coverage Start Date Coverage End Date [employer] [place] [address] [place] [address] [id number] ROXANNE REED Self - patient is the insured Medical (General) History Medical History History ICD Code Obesity, unspecified COVID-19 U07.1 Surgical History Surgery Date(Month/Year)
--- OUTSIDE RECORDS SUMMARY | 2025-07-08 11:39 | XMS_ITS | Encounter Summary ---
Author Organization [facility] Address [address] [place] [address] Phone Care Team Providers Care Back Tender Pulp Drier Name Role Phone Unavailable Primary Care Provider Unavailabl e Encounter Details Date Type Department Care Team (Late st Contact Info) Description 05/11/2016 Documentation EM Family Medicine [facility] [place] [address] Family Medicine, Physician [address] [place] [address] [phone] Social History Tobacco Use Types Packs/Day Years [...]
--- OUTSIDE RECORDS SUMMARY | 2025-07-08 11:39 | XMS_ITS | Clinical Summary ---
Author Organization [facility] Address [address] [place] [phone] Phone Care Team Providers Care Lawyer Criminal Name Role Phone Unavailable Primary Care Provider [...] Date Last Done Comments Influenza Vaccines (#1) 2025 08/29/20 13, 10/22/2012, 09/24/2011, Additional history exists COVID-19 Vaccine ( season) 2025 DTaP,Tdap,and Td Vaccines (8 - Td or [...] complete this topic Procedures * Due to [place] [employer] law, this organization might not be sharing sensitive test results. Procedure Name Priority Date/Time Associated Diagnosis Comments CHLAMYDIA AND GONORRHEA, AMPLIFIED Routine 06/11/2018 4:54 PM EDT Well adult exam from Last 3 Months or Most Recently Relevant to Health Maintenance Results * Due to [place] [employer] law, this organization might not be sharing sensitive test results. * Chlamydia and Gonorrhea, Amplified (06/11/2018 4:54 PM EDT) Chlamydia Trachomatis, DNA Probe NEGATIVE (NEG) [facility] Comment: No Chlamydia Trachomatis RNA detected in this patient's sample (REFERENCE RANGE/NORMAL VALUE: NOT DETECTED) Note: This test uses airplane designer- mediated amplification method to detect rRNA from C. Trachomatis URINE GC AMP PROBE NEGATIVE (NEG) [facility] Comment: No Neisseria Gonorrhoeae RNA detected in this patient's sample (REFERENCE RANGE/NORMAL VALUE: NOT DETECTED) NOTE: This test uses airplane designer-mediated amplification method to detect rRNA from N.Gonorrhoeae. [...] without risk of sexual abuse. Consult the [facility] if needed. Contact phone number . Therapeutic failure or success cannot be determined with the Aptima Combo2 assay since nucleic acid may persist following appropriate antimicrobial therapy. The Centers for Disease Control and Prevention (CDC) recommends confirmatory retesting using culture or a different nucleic acid amplification test when positive results occur, if indicated. Testing performed or reported by [facility], a Service of [facility], [facility] [place] [address] [facility] [id number] Franny Foster MD, PhD, Crusher Tender Urine 06/11/2018 4:54 PM EDT 06/11/2018 9:10 PM EDT Erika Kinney NP LAB MICROBIOLOGY - GENERAL ORDER SHIRA Final Result [facility] from Last 3 Months or Most Recently Relevant to Health Maintenance Insurance [facility]
--- OUTSIDE RECORDS SUMMARY | 2025-07-08 11:39 | XMS_ITS | Encounter Summary ---
Author Organization [facility] Address [address] [place] [address] Phone Care Team Providers Care Prison Guard Name Role Phone Unavailable Primary Care Provider Unavailabl e Encounter Details Date Type Department Care Team (Late st Contact Info) Description 06/13/2017 Conversion Encounter [facility] [address] [place] [address] [place], [place] [phone] Social History Tobacco Use Types Packs/Day Years [...]
--- OUTSIDE RECORDS SUMMARY | 2025-07-08 11:40 | XMS_ITS | Encounter Summary ---
Author Organization [facility] Address [address] [place] [address] Phone Care Team Providers Care Guitar Technician Name Role Phone Unavailable Primary Care Provider Unavailabl e Encounter Details Date Type Department Care Team (Late st Contact Info) Description 04/02/2013 Documentation EM Family Medicine [place] [address] Family Medicine, Physician [facility] [place], [place] [phone] Social History Tobacco Use Types Packs/Day Years [...]
== END 2025-07-08 10:32 | disposition home or self-care (01) ==
LOC: HO.HMCFM 09:51
PROVIDERS: PCP Physician Assistant Medical; Visit Provider Physician Assistant Medical
DX: E66.811 Obesity, class 1 (principal); Z68.30 Body mass index [BMI] 30.0-30.9, adult